=== PATIENT | male | born 1955 | race Caucasian/White ===

== ENCOUNTER 2024-09-16 11:06 | Inpatient (IN) ==
[2024-09-16] MEDS: OPTIRAY 320 125ml IV ONE (11:13)
[2024-09-16 11:31] LABS: Basophils # (auto) 0.03 K/uL (0.00-0.20); Basophils % (auto) 0.8 %; Eosinophils # (auto) 0.19 K/uL (0.00-0.50); Eosinophils % (auto) 5.1 %; Hematocrit (blood only) 39.2 % (42.0-52.0); Hemoglobin 13.1 g/dl (14.0-18.0); Immature Granulocytes # (auto) 0.01 K/uL (0.01-0.20); Immature Granulocytes % (auto) 0.3 %; Lymphocytes # (auto) 0.58 K/uL (1.20-3.40); Lymphocytes % (auto) 15.5 %; Mean Corpuscular Hemoglobin 29.4 pg (25.0-34.0); Mean Corpuscular Hgb Conc 33.4 g/dL (32.0-36.0); Mean Corpuscular Volume 87.9 fL (80.0-100.0); Mean Platelet Volume 9.7 fL (9.4-12.4); Monocytes # (auto) 0.52 K/uL (0.11-0.59); Monocytes % (auto) 13.9 %; Neutrophils # (auto) 2.41 K/uL (1.40-6.50); Neutrophils % (auto) 64.4 %; Platelet Count 142 K/uL (130-400); RDW Coefficient of Variation 14.3 % (11.5-14.5); RDW Standard Deviation 45.7 fL (36.4-46.3); Red Blood Count 4.46 M/uL (4.70-6.10); White Blood Count 3.74 K/ul (4.8-10.8)
--- NOTE | 2024-09-16 11:33 | CT Scan Report ---
CT angio neck with con CLINICAL HISTORY: STROKE ALERT. TECHNIQUE: Following the IV administration of 112 of Optiray, CT angiogram of the neck was performed from the aortic arch to the skull base. Images are reviewed in the axial, sagittal, and coronal plane s. 3-D MIPS images are created and assessed. IV contrast was administered without complication. All m easurements were calculated based on NASCET criteria. A dose lowering technique was utilized adherin g to the principles of ALARA. COMPARISON STUDY: None FINDINGS: There are mild carotid bulb calcifications. 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 There is moderate narrowing distally at the left internal carotid artery. No oth er significant narrowing or occlusion seen at the common or internal carotid arteries.. Left vertebra l artery is dominant and the right vertebral artery is diminutive and terminates in PICA, anatomic va riant. There is calcified plaque distally at the left vertebral artery causing severe narrowing. No o ther significant narrowing or occlusion seen at the vertebral arteries. There are diffuse cervical sp ine degenerative changes. IMPRESSION: 1. Severe narrowing distally at the left vertebral artery. 2. Moderate narrowing distally at the left ICA. 3. No other significant arterial narrowing or occlusion cc of the neck. ACT 112: Negative or not required by law. The above report was generated using voice recognition software. It may contain grammatical, syntax o r spelling errors. Electronically signed by: Khai Kent M.D. 09/16/2024 11:31 AM
--- NOTE | 2024-09-16 11:33 | CT Scan Report ---
CT head/brain wo con CLINICAL HISTORY: STROKE ALERT. TECHNIQUE: Multiple axial CT images of the head were obtained without contrast. A dose lowering tech nique was utilized adhering to the principles of ALARA. CT DOSE: 1202 COMPARISON: None FINDINGS: No intracranial hemorrhage seen. No mass effect, midline shift, or hydrocephalus. There are moderate chronic small vessel ischemic changes. Visualized paranasal sinuses and mastoid air cells a re clear. No skull fracture seen. IMPRESSION: No acute findings. ACT 112: Negative or not required by law. The above report was generated using voice recognition software. It may contain grammatical, syntax o r spelling errors. Electronically signed by: Khai Kent M.D. 09/16/2024 11:32 AM
--- NOTE | 2024-09-16 11:35 | CT Scan Report ---
CTA ANGIOGRAPHY OF THE HEAD CLINICAL HISTORY: STROKE ALERT COMPARISON STUDY: No previous studies for comparison. TECHNIQUE: Helical axial images of the head were obtained following uneventful intravenous administr ation of 112 cc of Optiray. Sagittal and coronal reconstructions were viewed as well as maximal inten sity projections on an independent 3-D workstation. Automated exposure control was utilized for the study. A dose lowering technique was utilized adhering to the principles of ALARA. CT DOSE: 1202.6 mGy.cm FINDINGS: Please note that the head CT will be reported separately. No acute intracranial hemorrhage, midline shift or mass effect is present. Ventricular system is unremarkable. Basal cisterns are cehek nt. There are no extra axial collections. There is extensive atherosclerotic plaque within the intrac ranial vessels. The bilateral M1, M2, A1 and A2 segments are patent. The left A1 segment is diminutiv e, likely on a congenital basis. There is moderate stenosis of the bilateral cavernous carotids, left greater than right, due to calcified plaque. No intracranial aneurysm is identified. Severe stenoses within the intracranial portion of the left vertebral artery are patent. There is short segment occl usion with distal reconstitution of the right vertebral artery which is diminutive. Basilar artery is patent. There are moderate multifocal stenoses within the bilateral posterior cerebral artery. IMPRESSION: 1. Extensive atherosclerotic plaque within the intracranial vessels. Moderate to severe multifocal st enoses, as detailed above. Short segment occlusion with distal reconstitution of the right vertebral artery which is age indeterminate although probably chronic. 2. Otherwise, no large vessel occlusion. No intracranial aneurysm. ACT 112: Negative or not required by law. Electronically signed by: Italo Quarles M.D. 09/16/2024 11:33 AM
[2024-09-16] MEDS: SODIUM CHLORIDE 0.9% 1,000 ML IV ONE (11:43)
[2024-09-16] MEDS: LABETALOL HCL IV 5 MG/ML 20ML IV ONE (11:44)
[2024-09-16] MEDS ORDERED: No Aspirin within 24hrs of THROMBOLYTIC-Stroke PO SCH (11:45)
[2024-09-16 11:49] LABS: INR 1.1 (0.9-1.1); Partial Thromboplastin Ratio 1.1; Partial Thromboplastin Time 29 Seconds (21-31); Prothrombin Time 11.4 Seconds (9.0-12.0)
[2024-09-16] MEDS: TENECTEPLASE 25 MG in SYRINGE 0 ML IV ONE (11:49)
[2024-09-16] MEDS: STAT IV/IM STA (11:51)
[2024-09-16] MEDS: SODIUM CHLORIDE 0.9% 10ML FLUSH IV STA (11:51)
[2024-09-16 11:52] LABS: Albumin Globulin Ratio 1.4 (0.9-2); Albumin Level 3.8 gm/dl (3.4-5.0); BUN Creatinine Ratio 29.2 (10-20); Bilirubin,Total 0.2 mg/dl (0.2-1.0); Calcium 8.7 mg/dl (8.6-10.3); Creatinine Clr Calc Pharmacy 128.3 ml/min; Globulin 2.7 gm/dl (2.5-4.0); Magnesium 1.9 mg/dl (1.7-2.4); Potassium 3.9 mmol/L (3.5-5.1); Total Protein 6.5 gm/dl (6.0-8.3)
[2024-09-16] MEDS: LABETALOL HCL IV 5 MG/ML 20ML IV PRN (11:55)
[2024-09-16 11:57] LABS: Troponin I High Sensitivity 5.2 pg/ml (0-20)
--- NOTE | 2024-09-16 12:03 | Emergency Department Note ---
Impression & Plan Stroke, Thrombolytic medication administered within last 5 days, HTN (hypertension) ED Provider Note NAME: KARISSA CABRERA AGE: 69 SEX: M : 1955 ARRIVES VIA: Walk-In INFORMANT: Patient ED PROVIDER(S): Gurjit Molina MD CHIEF COMPLAINT: Strokelike symptoms, stroke alert. PLAN: Disposition: Admit MEDICAL DECISION MAKING: The patient is a pleasant 69-year-old gentleman with a past medical history of CAD, hypertension, hyperlipidemia, type 2 diabetes who presents to the emergency department via EMS for evaluation of acute onset stroke symptoms which occurred prior to arrival with last known well of 10:15 AM in the setting of the patient accompanying his to her chemotherapy appointment and staff suddenly noticed that the patient had a staggering gait and right lower facial droop with slurred speech. Stroke alert was activated in the field per my discussion on medical command call with EMS crew. Patient was taken directly to CT and case was [place] Hickman, [facility]. On evaluation patient is no acute distress, afebrile with blood pressure 170/80s and vital signs otherwise stable. He exhibits right lower facial droop with dysarthria, right upper extremity weakness with pronator drift. Right lower extremity drift. Dr. Hickman did evaluate the patient via telestroke monitor. EKG without overt acute ischemia. CXR negative for acute cardiopulmonary process per my personal preliminary review/interpretation. WBC 3.7K without prior for comparison. H/H 13.1/39.2 without prior for comparison. Platelets within normal limits. Chemistry without metabolic acidosis. Electrolytes and LFTs unremarkable. UA without evidence of infection. CT of the head was negative for ICH or ischemia. CTA of the head and neck was performed and demonstrates cerebrovascular disease with extensive atherosclerotic plaque within the intracranial vessels with moderate to severe multifocal stenoses. Note is made of short-segment occlusion with distal reconstitution of the right vertebral artery that is suspected to be chronic. Severe narrowing distally at the left vertebral artery is described. Moderate narrowing distally of the left ICA is noted. Given the patient's symptoms where he was within the TNK window TNK was offered following discussion of risks and benefits. Patient was in agreement as was his over the phone. Dr. Hickman and I were in agreement and TNK was administered following treatment with labetalol to lower the patient's blood pressure into range. Patient did exhibit rapidly improving symptoms following administration with improved facial weakness. Blood pressure additionally managed with labetalol. Patient remained in stable condition. Appreciate [facility] [place] and recommendations. Case was discussed with Alexa Rm PAC with Dr. Galicia [facility] hospitalist, who will evaluate the patient for admission. Further management per admitting team. Triage Nursing notes reviewed and agree them. Prior/external medical records reviewed Vital Signs: reviewed Differential diagnosis: Infection, dehydration, metabolic abnormality, hypo/hyperglycemia, electrolyte disturbance, anemia, hypoxia, cardiac sources, intracerebral event, toxicologic, neurologic, as well as other pathologies. ER treatment provided: See below. Diagnostics interpreted by me: ECG: Sinus rhythm with first-degree AV block, 72 bpm, no ectopy, no overt ST elevation or depression, QTc 466, QRS 108. Cardiac Monitoring: An order for continuous cardiac monitoring was placed and demonstrated sinus rhythm first-degree block, 72 bpm, no ectopy. Laboratory studies: See below Imaging studies: See below Consultation(s): Dr. Hickman, [facility] [place]. Alexa Rm PAC with Dr. Galicia [facility] hospitalist. HPI: Per MDM. ROS: See above HPI for pertinent positives & negatives. A total of 10 systems reviewed and were otherwise negative. VITALS:See Below PHYSICAL EXAMINATION: GENERAL: Awake, alert, in no distress, BMI 37.0. HENT: Normocephalic, atraumatic. Oropharynx unremarkable. EYES: Normal conjunctiva. Sclera non-icteric. EOMI. No nystamgus. PEARRL. NECK: Supple. No nuchal rigidity. FROM. No JVD. RESPIRATORY: Clear to auscultation. CARDIAC: Regular rate, normal rhythm. Extremities warm and well perfused. Pulses equal. ABDOMEN: Soft, non-distended. No tenderness to palpation. No rebound or guarding. No masses. MUSCULOSKELETAL: Chest examination reveals no tenderness. The back is symmetrical on inspection without obvious abnormality. There is no CVA tenderness to palpation. No joint edema. LOWER EXTREMITIES: Calves are equal size bilaterally and non-tender. No edema. No discoloration. NEURO: Right lower facial droop with dysarthria, right upper extremity weakness with pronator drift. Right lower extremity drift. SKIN: No rash or jaundice noted. ED COURSE: Critical Care: I have personally spent greater than 65 minutes of critical care time in the direct management of this patient. This includes bedside care, interpretation of diagnostic studies, and testing, discussion with consultants, patient, and family members, and other required patient management activities. This 65 minutes is in excess of all separately billable procedures. Gurjit Molina MD Past Med/Surg History Problem List (Updated 09/16/24 @ 22:24 by Gurjit Molina MD) Thrombolytic medication administered within last 5 days (Acute) Stroke (Acute) CAD (coronary artery disease) Dyslipidemia HTN (hypertension) (Acute) Type 2 diabetes mellitus Medical History S/P stroke due to cerebrovascular disease 1991 Esophageal reflux History of basal cell carcinoma Ischemic cardiomyopathy PATRICIA on CPAP PAF (paroxysmal atrial fibrillation) post-operative Seizure disorder, simple partial, without intractable epilepsy Ascending aorta dilation Dilated aortic root Surgical History Status post left hip replacement S/P appendectomy Status post total bilateral knee replacement History of carpal tunnel surgery of right wrist S/P CABG x 3 CABG on 10/15/21 with GORDON-LAD, SVG to diagonal, SVG to PDA Family History Other Diabetes Hypertension Lymphoma Stroke Social History Smoking Status: Never smoker Second Hand Exposure: No; Do You Dip or Chew Tobacco: No; Tobacco Cessation Education Requested by Patient: No Hx Alcohol Use: No Hx Substance Use: No Preferred Language: Turkmen Communication Ability: Effective Document Review Specialist Required: No Beliefs That Will Affect Care: None Current Living Situation: Spouse Other Information That Helps Us Care for You: No Feels Safe at Home: Yes Safety Concerns: Feels Safe At This Time Assistive Devices: CPAP Assistive Devices Comment: cpap hs-no o2 Allergies Allergies Allergy/AdvReac Type Severity Reaction Status Date / Time morphine AdvReac Nausea Verified 09/16/24 12:55 Home Meds Home Medications Medication Instructions Recorded Confirmed ascorbic acid (vitamin C) 1,000 mg 1,000 mg PO DAILY 09/16/24 09/16/24 tablet aspirin 81 mg tablet,delayed 81 mg PO DAILY 09/16/24 09/16/24 release berberine chloride 500 mg capsule 500 mg PO DAILY 09/16/24 09/16/24 carbamazepine 200 mg tablet 300 mg PO BID 09/16/24 09/16/24 cyanocobalamin (vitamin B-12) 1,000 mcg PO DAILY 09/16/24 09/16/24 1,000 mcg tablet (Vitamin B-12) metoprolol succinate 25 mg 25 mg PO DAILY 09/16/24 09/16/24 tablet,extended release 24 hr rosuvastatin 40 mg tablet 40 mg PO DAILY 09/16/24 09/16/24 vitamin B complex 1 tab PO DAILY 09/16/24 09/16/24 Results & Data (ED) Vital Signs Vital Signs - 24 hr 09/16/24 11:18 09/16/24 11:20 09/16/24 11:27 Temperature Temperature Source Pulse Rate 74 Pulse Rate [Apical] 77 Respiratory Rate 16 Respiratory Effort / Characteristics Non-Labored Respiratory Depth Normal Blood Pressure Blood Pressure [Right Arm] 171/83 H Blood Pressure Mean [Right Arm] 112 Pulse Oximetry 93 93 Oxygen Delivery Method Room Air Room Air Sepsis Recent Fever Within 48 Hours Sepsis New/Unexplained Change in Mental Status Sepsis Action Taken by Nursing 09/16/24 11:41 09/16/24 11:44 09/16/24 11:48 Temperature 36.9 C Temperature Source Oral Pulse Rate 67 Pulse Rate [Apical] 67 72 Respiratory Rate 20 17 Respiratory Effort / Characteristics Non-Labored Non-Labored Respiratory Depth Normal Normal Blood Pressure 186/126 H Blood Pressure [Right Arm] 186/126 H 181/94 H Blood Pressure Mean [Right Arm] 146 123 Pulse Oximetry 93 92 Oxygen Delivery Method Room Air Room Air Sepsis Recent Fever Within 48 Hours Sepsis New/Unexplained Change in Mental Status Sepsis Action Taken by Nursing 09/16/24 11:51 09/16/24 11:55 09/16/24 11:56 Temperature Temperature Source Pulse Rate 70 Pulse Rate [Apical] 70 70 Respiratory Rate 16 16 Respiratory Effort / Characteristics Non-Labored Non-Labored Respiratory Depth Normal Normal Blood Pressure 186/79 H Blood Pressure [Right Arm] 186/79 H 186/79 H Blood Pressure Mean [Right Arm] 114 114 Pulse Oximetry 93 92 Oxygen Delivery Method Room Air Room Air Sepsis Recent Fever Within 48 Hours Sepsis New/Unexplained Change in Mental Status Sepsis Action Taken by Nursing 09/16/24 11:58 09/16/24 12:00 09/16/24 12:01 Temperature 36.9 C Temperature Source Oral Pulse Rate 71 74 Pulse Rate [Apical] 70 Respiratory Rate 16 20 Respiratory Effort / Characteristics Non-Labored Non-Labored Respiratory Depth Normal Normal Blood Pressure 172/94 H Blood Pressure [Right Arm] 172/94 H Blood Pressure Mean [Right Arm] 120 Pulse Oximetry 93 93 Oxygen Delivery Method Room Air Room Air Sepsis Recent Fever Within 48 Hours No Sepsis New/Unexplained Change in Mental Status Yes Sepsis Action Taken by Nursing No Action Required 09/16/24 12:04 09/16/24 12:06 09/16/24 12:13 Temperature Temperature Source Pulse Rate 72 Pulse Rate [Apical] 77 67 Respiratory Rate 20 20 Respiratory Effort / Characteristics Non-Labored Spontaneous Non-Labored Respiratory Depth Normal Normal Blood Pressure 149/91 H Blood Pressure [Right Arm] 174/86 H 166/91 H Blood Pressure Mean [Right Arm] 115 116 Pulse Oximetry 94 94 Oxygen Delivery Method Room Air Room Air Sepsis Recent Fever Within 48 Hours Sepsis New/Unexplained Change in Mental Status Sepsis Action Taken by Nursing 09/16/24 12:21 09/16/24 12:21 09/16/24 12:37 Temperature Temperature Source Pulse Rate Pulse Rate [Apical] 69 71 71 Respiratory Rate 16 21 20 Respiratory Effort / Characteristics Non-Labored Non-Labored Non-Labored Respiratory Depth Normal Normal Normal Blood Pressure Blood Pressure [Right Arm] 162/92 H 162/92 H 158/93 H Blood Pressure Mean [Right Arm] 115 115 114 Pulse Oximetry 92 93 91 Oxygen Delivery Method Room Air Room Air Room Air Sepsis Recent Fever Within 48 Hours Sepsis New/Unexplained Change in Mental Status Sepsis Action Taken by Nursing 09/16/24 12:37 09/16/24 12:50 09/16/24 12:50 Temperature Temperature Source Pulse Rate Pulse Rate [Apical] 73 74 75 Respiratory Rate 20 20 20 Respiratory Effort / Characteristics Non-Labored Non-Labored Non-Labored Respiratory Depth Normal Normal Normal Blood Pressure Blood Pressure [Right Arm] 158/93 H Blood Pressure Mean [Right Arm] 114 Pulse Oximetry 93 93 93 Oxygen Delivery Method Room Air Room Air Room Air Sepsis Recent Fever Within 48 Hours Sepsis New/Unexplained Change in Mental Status Sepsis Action Taken by Nursing 09/16/24 12:59 Temperature Temperature Source Pulse Rate Pulse Rate [Apical] 77 Respiratory Rate 20 Respiratory Effort / Characteristics Non-Labored Respiratory Depth Normal Blood Pressure Blood Pressure [Right Arm] 150/83 H Blood Pressure Mean [Right Arm] 105 Pulse Oximetry 95 Oxygen Delivery Method Room Air Sepsis Recent Fever Within 48 Hours Sepsis New/Unexplained Change in Mental Status Sepsis Action Taken by Nursing Laboratory Data Attestation: I reviewed the patient's lab results. 09/16/24 11:22 09/16/24 11:22 Lab Results 09/16/24 09/16/24 09/16/24 Range/Units 11:20 11:22 12:17 WBC 3.74 L (4.8-10.8) K/ul RBC 4.46 L (4.70-6.10) M/uL Hgb 13.1 L (14.0-18.0) g/dl Hct 39.2 L (42.0-52.0) % MCV 87.9 (80.0-100.0) fL MCH 29.4 (25.0-34.0) pg MCHC 33.4 (32.0-36.0) g/dL RDW Std Deviation 45.7 (36.4-46.3) fL RDW Coeff of [place] 14.3 (11.5-14.5) % Plt Count 142 (130-400) K/uL MPV 9.7 (9.4-12.4) fL Immature Gran % (Auto) 0.3 % Neut % (Auto) 64.4 % Lymph % (Auto) 15.5 % [place] % (Auto) 13.9 % Eos % (Auto) 5.1 % Baso % (Auto) 0.8 % Neut # (Auto) 2.41 (1.40-6.50) K/uL Lymph # (Auto) 0.58 L (1.20-3.40) K/uL [place] # (Auto) 0.52 (0.11-0.59) K/uL Eos # (Auto) 0.19 (0.00-0.50) K/uL Baso # (Auto) 0.03 (0.00-0.20) K/uL Immature Gran # (Auto) 0.01 (0.01-0.20) K/uL PT 11.4 (9.0-12.0) Seconds INR 1.1 (0.9-1.1) APTT 29 (21-31) Seconds PTT Ratio 1.1 Sodium 135 L (136-145) mmol/L Potassium 3.9 (3.5-5.1) mmol/L Chloride 104 (98-107) mmol/L Carbon Dioxide 26 (21-32) mmol/L Anion Gap 5 (3-11) BUN 21 (6-23) mg/dl Creatinine 0.72 (0.6-1.4) mg/dl Est Cr Clr Drug Dosing 128.3 ml/min eGFR 97.68 BUN/Creatinine Ratio 29.2 H (10-20) Glucose 146 H (70-99(Fasting)) mg/dl POC Glucose 132 H (70-99) mg/dl Calcium 8.7 (8.6-10.3) mg/dl Magnesium 1.9 (1.7-2.4) mg/dl Total Bilirubin 0.2 (0.2-1.0) mg/dl AST 21 (13-39) U/L ALT 24 (7-52) U/L Alkaline Phosphatase 70 (34-104) U/L Troponin I High Sens 5.2 (0-20) pg/ml Total Protein 6.5 (6.0-8.3) gm/dl Albumin 3.8 (3.4-5.0) gm/dl Globulin 2.7 (2.5-4.0) gm/dl Albumin/Globulin Ratio 1.4 (0.9-2) Urine Color Yellow Urine Appearance Clear (Clear) Urine pH 7.0 (4.5-7.5) Ur Specific [place] 1.033 H (1.000-1.030) Urine Protein Negative (Negative) Urine Glucose (UA) Negative (Negative) Urine Ketones Negative (Negative) Urine Blood Negative (Negative) Urine Nitrite Negative (Negative) Urine Bilirubin Negative (Negative) Urine Urobilinogen Negative (Negative) Ur Leukocyte Esterase Negative (Negative) Urine Comment Administered Medications Carbamazepine (Carbamazepine 200 Mg Tablet) 300 mg PO BID KILO Stop: 10/16/24 20:59 Last Admin: 09/16/24 20:12 Dose: 300 mg Documented By: SG Miscellaneous (Icu Protocol For Hyperglycemia) 1 each N/A ACHS KILO Stop: 09/18/24 16:29 Last Admin: 09/16/24 20:18 Dose: 1 each Documented By: Admin: 09/16/24 18:23 Dose: Not Given Documented By: CAM Discontinued Medications Gadobutrol (Gadobutrol 65ml Vial) 12.4 ml IV ONCE ONE Stop: 09/16/24 20:55 Last Admin: 09/16/24 20:55 Dose: 12.4 ml Documented By: PAU Sodium Chloride (Nss) 1,000 mls @ 999 mls/hr IV .Q1H1M ONE Stop: 09/16/24 12:19 Last Infusion: 09/16/24 11:51 Dose: Infused Documented By: Admin: 09/16/24 11:43 Dose: 999 mls/hr Documented By: EUSEBIA Tenecteplase 25 mg/ Syringe 5 mls @ 60 mls/min IV NOW ONE; Protocol Stop: 09/16/24 11:56 Last Admin: 09/16/24 11:49 Dose: 60 mls/min Documented By: EUSEBIA Co-signed By: MARTY Ioversol (Optiray 320 125ml) 112 ml IV ONCE ONE Stop: 09/16/24 11:13 Last Admin: 09/16/24 11:13 Dose: 112 ml Documented By: AYANA Labetalol HCl (Labetalol Hcl Iv 5 Mg/Ml 20ml) Confirm Administered Dose 10 mg IV .STK-MED ONE Stop: 09/16/24 11:42 Last Admin: 09/16/24 11:44 Dose: 10 mg Documented By: EUSEBIA Labetalol HCl (Labetalol Hcl Iv 5 Mg/Ml 20ml) 10 mg IV Q10M PRN PRN Reason: SBP > 185 or DBP > 110mmHg Stop: 09/16/24 12:45 Last Admin: 09/16/24 11:55 Dose: 5 mg Documented By: EUSEBIA Miscellaneous (Stat Iv/Im) 1 each N/A NOW STA Stop: 09/16/24 11:46 Last Admin: 09/16/24 11:51 Dose: 1 each Documented By: EUSEBIA Ondansetron HCl (Ondansetron Inj 2 Mg/Ml 2 Ml Vial) Confirm Administered Dose 4 mg .ROUTE .STK-MED ONE Stop: 09/16/24 12:13 Last Admin: 09/16/24 12:13 Dose: 4 mg Documented By: EUSEBIA Sodium Chloride (Sodium Chloride 0.9% 10ml Flush) 20 ml IV NOW STA Stop: 09/16/24 11:46 Last Admin: 09/16/24 11:51 Dose: 20 ml Documented By: ES Imaging Data Radiologist's Impression: Head CT 09/16/24 11:09 CT head/brain wo con CLINICAL HISTORY: STROKE ALERT. TECHNIQUE: Multiple axial CT images of the head were obtained without contrast. A dose lowering technique was utilized adhering to the principles of ALARA. CT DOSE: 1202 COMPARISON: None FINDINGS: No intracranial hemorrhage seen. No mass effect, midline shift, or hydrocephalus. There are moderate chronic small vessel ischemic changes. Visualized paranasal sinuses and mastoid air cells are clear. No skull fracture seen. IMPRESSION: No acute findings. ACT 112: Negative or not required by law. The above report was generated using voice recognition software. It may contain grammatical, syntax or spelling errors. Electronically signed by: Khai Kent M.D. 09/16/2024 11:32 AM Head CTA 09/16/24 11:09 CTA ANGIOGRAPHY OF THE HEAD CLINICAL HISTORY: STROKE ALERT COMPARISON STUDY: No previous studies for comparison. TECHNIQUE: Helical axial images of the head were obtained following uneventful intravenous administration of 112 cc of Optiray. Sagittal and coronal reconstructions were viewed as well as maximal intensity projections on an independent 3-D workstation. Automated exposure control was utilized for the study. A dose lowering technique was utilized adhering to the principles of ALARA. CT DOSE: 1202.6 mGy.cm FINDINGS: Please note that the head CT will be reported separately. No acute intracranial hemorrhage, midline shift or mass effect is present. Ventricular system is unremarkable. Basal cisterns are patent. There are no extra axial collections. There is extensive atherosclerotic plaque within the intracranial vessels. The bilateral M1, M2, A1 and A2 segments are patent. The left A1 segment is diminutive, likely on a congenital basis. There is moderate stenosis of the bilateral cavernous carotids, left greater than right, due to calcified plaque. No intracranial aneurysm is identified. Severe stenoses within the intracranial portion of the left vertebral artery are patent. There is short segment occlusion with distal reconstitution of the right vertebral artery which is diminutive. Basilar artery is patent. There are moderate multifocal stenoses within the bilateral posterior cerebral artery. IMPRESSION: 1. Extensive atherosclerotic plaque within the intracranial vessels. Moderate to severe multifocal stenoses, as detailed above. Short segment occlusion with distal reconstitution of the right vertebral artery which is age indeterminate although probably chronic. 2. Otherwise, no large vessel occlusion. No intracranial aneurysm. ACT 112: Negative or not required by law. Electronically signed by: Italo Quarles M.D. 09/16/2024 11:33 AM Neck CTA 09/16/24 11:09 CT angio neck with con CLINICAL HISTORY: STROKE ALERT. TECHNIQUE: Following the IV administration of 112 of Optiray, CT angiogram of the neck was performed from the aortic arch to the skull base. Images are reviewed in the axial, sagittal, and coronal planes. 3-D MIPS images are created and assessed. IV contrast was administered without complication. All measurements were calculated based on NASCET criteria. A dose lowering technique was utilized adhering to the principles of ALARA. COMPARISON STUDY: None FINDINGS: There are mild carotid bulb calcifications. There are calcifications distally at the internal carotid arteries. There is moderate narrowing distally at the left internal carotid artery. No other significant narrowing or occlusion seen at the common or internal carotid arteries.. Left vertebral artery is dominant and the right vertebral artery is diminutive and terminates in PICA, anatomic variant. There is calcified plaque distally at the left vertebral artery causing severe narrowing. No other significant narrowing or occlusion seen at the vertebral arteries. There are diffuse cervical spine degenerative changes. IMPRESSION: 1. Severe narrowing distally at the left vertebral artery. 2. Moderate narrowing distally at the left ICA. 3. No other significant arterial narrowing or occlusion cc of the neck. ACT 112: Negative or not required by law. The above report was generated using voice recognition software. It may contain grammatical, syntax or spelling errors. Electronically signed by: Khai Kent M.D. 09/16/2024 11:31 AM Chest X-Ray 09/16/24 11:19 XR chest 1V portable CLINICAL HISTORY: neuro deficit, acute stroke suspected COMPARISON STUDY: None FINDINGS: There is prior CABG. There is moderate cardiomegaly with mild pulmonary vascular congestion. Inspiration shallow. No effusion, consolidation, or pneumothorax. IMPRESSION: CHF. ACT 112: Negative or not required by law. Electronically signed by: Khai Kent M.D. 09/16/2024 12:18 PM Discharge Plan Visit Data Chief Complaint: Stroke Alert Stated Complaint: STROKE ALERT ED Provider: Gurjit Molina Discharge Problem: Stroke, Thrombolytic medication administered within last 5 days, HTN (hypertension) Patient Disposition: Admitted As Inpatient Condition: Serious Discharge Instructions Interventions: ED Discharge Assessment Last Done: 09/16/24 14:35 Discharge Problem: Stroke Qualifiers: CVA mechanism: unspecified Qualified Code(s): I63.9 - Cerebral infarction, unspecified HTN (hypertension) Qualifiers: Hypertension type: unspecified Qualified Code(s): I10 - Essential (primary) hypertension
[2024-09-16] MEDS: ONDANSETRON INJ 2 MG/ML 2 ML VIAL ONE (12:13)
--- NOTE | 2024-09-16 12:20 | XRay Report ---
XR chest 1V portable CLINICAL HISTORY: neuro deficit, acute stroke suspected COMPARISON STUDY: None FINDINGS: There is prior CABG. There is moderate cardiomegaly with mild pulmonary vascular congestion . Inspiration shallow. No effusion, consolidation, or pneumothorax. IMPRESSION: CHF. ACT 112: Negative or not required by law. Electronically signed by: Khai Kent M.D. 09/16/2024 12:18 PM
[2024-09-16 12:28] LABS: Appearance Urine Clear (Clear); Bilirubin Urine Negative (Negative); Blood Urine Negative (Negative); Color Urine Yellow; Glucose Urine UA Negative (Negative); Ketones Urine Negative (Negative); Leukocyte Esterase Urine Negative (Negative); Nitrite Urine Negative (Negative); Protein Urine Negative (Negative); Specific Gravity Urine 1.033 (1.000-1.030); Urobilinogen Urine Negative (Negative)
--- NOTE | 2024-09-16 13:00 | History & Physical Report ---
Date of Service September 16, 2024 Assessment & Plan (1) Stroke: (2) Type 2 diabetes mellitus: (3) CAD (coronary artery disease): (4) HTN (hypertension): (5) Dyslipidemia: (6) PATRICIA on CPAP: (7) Seizure disorder, simple partial, without intractable epilepsy: Plan This is a 69 y/o male with CAD s/p CABG x 3, HTN, dyslipidemia, hx PAF (post- operative), diet-controlled DM2, seizure d/o (seizure-free x 15 yrs, Tegretol being tapered), dilated aortic root/ascending aorta, PATRICIA on CPAP, and other history as outlined below who presents to the ED today as a stroke alert. Underwent telestroke evaluation and determined to be a TNK candidate, which he received at 11:49 am with improvement of symptoms. Initial CT brain was negative for acute findings. CTA head/neck showed severe narrowing distally at left vertebral artery, moderate narrowing distally at left ICA, extensive intracr anial atherosclerotic plaque, moderate to severe multifocal stenosis. Initial labs with hgb 13.1, hct 39.2, BUN 21, creatinine 0.72. #Stroke s/p TNK administration #Extensive atherosclerosis of intracranial vasculature - Admit to ICU x 24 hours for close monitoring - Consult scrummaster - Neuro checks per protocol - Repeat non-contrast CT head in 24 hours to rule out bleeding, no antiplatelets/anticoagulation x 24 hours - A1c, lipids, homocysteine in the AM - Consult neurology - PT, OT, speech therapy evaluations - Spoke with RN in the ED who did bedside swallow - passed so will order diet - MRI brain - ECHO with bubble study #Type 2 Diabetes - Insulin sliding scale to maintain glucose <180 - A1c in AM - Consider additional medication, such as metformin, at discharge for more aggressive blood glucose management - Diabetic diet #Hypertension - Maintain BP <180/100 as per protocol - prn Labetalol ordered - May need to consider additional BP agent with the metoprolol #Dyslipidemia - Lipid panel in the AM - Change from rosuvastatin to atorvastatin 80 mg daily #PATRICIA on CPAP - CPAP ordered for HS based on settings listed in Epic #CAD s/p CABG x 3 - Denies anginal symptoms - Continue statin, beta-isadora. Will resume aspirin after 24 hours #Seizure disorder - Continue Tegretol Pt seen and reviewed with collaborating physician, Dr. Galicia. Plan of care discussed and as outlined above. Code status: full code DVT prophylaxis: SCDs I spent a total of 76 minutes coordinating, documenting, and providing care for this patient excluding time spent in the performance of separately billed services or time spent by another provider/QHP. Patience Latham PA-C History of Present Illness Chief Complaint: stroke alert Primary Care Provider: Eli Ahmadi PA-C This is a 69 y/o male with CAD s/p CABG x 3, HTN, dyslipidemia, hx PAF (post-operative), diet-controlled DM2. seizure d/o (seizure-free x 15 yrs, Tegretol being tapered), dilated aortic root/ascending aorta, PATRICIA on CPAP, and other history as outlined below who presents to the ED today as a stroke alert. Pt reports he was with his while she was getting chemotherapy and dozed off. When he woke up, he was soaked in sweat. He went to get up from the chair and noted his balance was off and he was falling to the right. Staff at the other medical facility all noted pt had a right facial droop and slurred speech so EMS was called. Last known well at 10:10 am. Pt brought to the ED via EMS as a stroke alert. In the ED, pt underwent telestroke evaluation and determined to be a candidate for TNK. Administered at 11:49 am with reported improvement in symptoms. Since TNK, pt has noted some mild nausea, bleeding lower lip but attributed to dry air. He had right facial numbness and dysarthria initially, which has also resolved. Denies chest pain, dyspnea, palpitations. He has a history of seizure disorder but reports last seizure was more than fifteen years ago. Has been tapering Tegretol - currently taking 300 mg BID (was originally at 600 mg BID). ECHO 05/13/23 - LVEF 55-59%, normal LV systolic function, grade I diastolic function, mild aortic regurgitation, moderately calcified aortic valve; mildly enlarged aortic root (4.3 cm), proximal ascending thoracic aorta is moderately enlarged (4.4 cm); mild mitral regurgitation Labs 08/02/24: A1c 7.0, LDL 98, HDL 37 Allergies Allergy/AdvReac Type Severity Reaction Status Date / Time morphine AdvReac Nausea Verified 09/16/24 12:55 Home Medications Medication Instructions Recorded Confirmed Type ascorbic acid (vitamin C) 1,000 mg 1,000 mg PO DAILY 09/16/24 09/16/24 History tablet aspirin 81 mg tablet,delayed 81 mg PO DAILY 09/16/24 09/16/24 History release berberine chloride 500 mg capsule 500 mg PO DAILY 09/16/24 09/16/24 History carbamazepine 200 mg tablet 300 mg PO BID 09/16/24 09/16/24 History cyanocobalamin (vitamin B-12) 1,000 mcg PO DAILY 09/16/24 09/16/24 History 1,000 mcg tablet (Vitamin B-12) metoprolol succinate 25 mg 25 mg PO DAILY 09/16/24 09/16/24 History tablet,extended release 24 hr rosuvastatin 40 mg tablet 40 mg PO DAILY 09/16/24 09/16/24 History vitamin B complex 1 tab PO DAILY 09/16/24 09/16/24 History Past Med/Surg History Problem List (Updated 09/16/24 @ 14:37 by Sandhya Latham PA-C) Stroke CAD (coronary artery disease) Dyslipidemia HTN (hypertension) Type 2 diabetes mellitus Medical History (Updated 09/16/24 @ 14:37 by Sandhya Latham PA-C) S/P stroke due to cerebrovascular disease 1991 Esophageal reflux History of basal cell carcinoma Ischemic cardiomyopathy PATRICIA on CPAP PAF (paroxysmal atrial fibrillation) post-operative Seizure disorder, simple partial, without intractable epilepsy Ascending aorta dilation Dilated aortic root Surgical History (Updated 09/16/24 @ 12:45 by Sandhya Latham PA-C) Status post left hip replacement S/P appendectomy Status post total bilateral knee replacement History of carpal tunnel surgery of right wrist S/P CABG x 3 CABG on 10/15/21 with GORDON-LAD, SVG to diagonal, SVG to PDA Family History (Updated 09/16/24 @ 12:42 by Sandhya Latham PA-C) Other Diabetes Hypertension Lymphoma Stroke Social History Smoking Status: Never smoker Second Hand Exposure: No; Do You Dip or Chew Tobacco: No; Tobacco Cessation Education Requested by Patient: No Hx Alcohol Use: No Hx Substance Use: No Preferred Language: Swedish Communication Ability: Effective Resort Desk Clerk Required: No Beliefs That Will Affect Care: None Current Living Situation: Spouse Other Information That Helps Us Care for You: No Feels Safe at Home: Yes Safety Concerns: Feels Safe At This Time Assistive Devices: CPAP Assistive Devices Comment: cpap hs-no o2 Review of Systems Review of Systems: All systems reviewed & are unremarkable except as noted in Subjective Physical Exam Physical Exam: Please see physician note for details of the physical exam. Results & Data Results & Data Vital Signs (Past 12 Hours) Vital Signs Temp Pulse Pulse Resp BP BP Pulse Ox 09/16/24 12:50 75 20 93 09/16/24 12:50 74 20 93 09/16/24 12:37 73 20 158/93 H 93 09/16/24 12:37 71 20 158/93 H 91 09/16/24 12:21 71 21 162/92 H 93 09/16/24 12:21 69 16 162/92 H 92 09/16/24 12:13 72 149/91 H 09/16/24 12:06 67 20 166/91 H 94 09/16/24 12:04 77 20 174/86 H 94 09/16/24 12:01 36.9 C 74 20 93 09/16/24 12:00 71 172/94 H 09/16/24 11:58 70 16 172/94 H 93 09/16/24 11:56 70 16 186/79 H 92 09/16/24 11:55 70 186/79 H 09/16/24 11:51 70 16 186/79 H 93 09/16/24 11:48 72 17 181/94 H 92 09/16/24 11:44 67 186/126 H 09/16/24 11:41 36.9 C 67 20 186/126 H 93 09/16/24 11:27 74 09/16/24 11:20 93 09/16/24 11:18 77 16 171/83 H 93 O2 Del Method 09/16/24 12:50 Room Air 09/16/24 12:50 Room Air 09/16/24 12:37 Room Air 09/16/24 12:37 Room Air 09/16/24 12:21 Room Air 09/16/24 12:21 Room Air 09/16/24 12:13 09/16/24 12:06 Room Air 09/16/24 12:04 Room Air 09/16/24 12:01 Room Air 09/16/24 12:00 09/16/24 11:58 Room Air 09/16/24 11:56 Room Air 09/16/24 11:55 09/16/24 11:51 Room Air 09/16/24 11:48 Room Air 09/16/24 11:44 09/16/24 11:41 Room Air 09/16/24 11:27 09/16/24 11:20 Room Air 09/16/24 11:18 Room Air Laboratory Results Lab Results 09/16/24 09/16/24 09/16/24 Range/Units 11:20 11:22 12:17 WBC 3.74 L (4.8-10.8) K/ul RBC 4.46 L (4.70-6.10) M/uL Hgb 13.1 L (14.0-18.0) g/dl Hct 39.2 L (42.0-52.0) % MCV 87.9 (80.0-100.0) fL MCH 29.4 (25.0-34.0) pg MCHC 33.4 (32.0-36.0) g/dL RDW Std Deviation 45.7 (36.4-46.3) fL RDW Coeff of [place] 14.3 (11.5-14.5) % Plt Count 142 (130-400) K/uL MPV 9.7 (9.4-12.4) fL Immature Gran % (Auto) 0.3 % Neut % (Auto) 64.4 % Lymph % (Auto) 15.5 % [place] % (Auto) 13.9 % Eos % (Auto) 5.1 % Baso % (Auto) 0.8 % Neut # (Auto) 2.41 (1.40-6.50) K/uL Lymph # (Auto) 0.58 L (1.20-3.40) K/uL [place] # (Auto) 0.52 (0.11-0.59) K/uL Eos # (Auto) 0.19 (0.00-0.50) K/uL Baso # (Auto) 0.03 (0.00-0.20) K/uL Immature Gran # (Auto) 0.01 (0.01-0.20) K/uL PT 11.4 (9.0-12.0) Seconds INR 1.1 (0.9-1.1) APTT 29 (21-31) Seconds PTT Ratio 1.1 Sodium 135 L (136-145) mmol/L Potassium 3.9 (3.5-5.1) mmol/L Chloride 104 (98-107) mmol/L Carbon Dioxide 26 (21-32) mmol/L Anion Gap 5 (3-11) BUN 21 (6-23) mg/dl Creatinine 0.72 (0.6-1.4) mg/dl Est Cr Clr Drug Dosing 128.3 ml/min eGFR 97.68 BUN/Creatinine Ratio 29.2 H (10-20) Glucose 146 H (70-99(Fasting)) mg/dl POC Glucose 132 H (70-99) mg/dl Calcium 8.7 (8.6-10.3) mg/dl Magnesium 1.9 (1.7-2.4) mg/dl Total Bilirubin 0.2 (0.2-1.0) mg/dl AST 21 (13-39) U/L ALT 24 (7-52) U/L Alkaline Phosphatase 70 (34-104) U/L Troponin I High Sens 5.2 (0-20) pg/ml Total Protein 6.5 (6.0-8.3) gm/dl Albumin 3.8 (3.4-5.0) gm/dl Globulin 2.7 (2.5-4.0) gm/dl Albumin/Globulin Ratio 1.4 (0.9-2) Urine Color Yellow Urine Appearance Clear (Clear) Urine pH 7.0 (4.5-7.5) Ur Specific [place] 1.033 H (1.000-1.030) Urine Protein Negative (Negative) Urine Glucose (UA) Negative (Negative) Urine Ketones Negative (Negative) Urine Blood Negative (Negative) Urine Nitrite Negative (Negative) Urine Bilirubin Negative (Negative) Urine Urobilinogen Negative (Negative) Ur Leukocyte Esterase Negative (Negative) Urine Comment Diagnostic Findings Head CT 09/16/24 11:09 CT head/brain wo con CLINICAL HISTORY: STROKE ALERT. TECHNIQUE: Multiple axial CT images of the head were obtained without contrast. A dose lowering technique was utilized adhering to the principles of ALARA. CT DOSE: 1202 COMPARISON: None FINDINGS: No intracranial hemorrhage seen. No mass effect, midline shift, or hydrocephalus. There are moderate chronic small vessel ischemic changes. Visualized paranasal sinuses and mastoid air cells are clear. No skull fracture seen. IMPRESSION: No acute findings. ACT 112: Negative or not required by law. The above report was generated using voice recognition software. It may contain grammatical, syntax or spelling errors. Electronically signed by: Khai Kent M.D. 09/16/2024 11:32 AM Head CTA 09/16/24 11:09 CTA ANGIOGRAPHY OF THE HEAD CLINICAL HISTORY: STROKE ALERT COMPARISON STUDY: No previous studies for comparison. TECHNIQUE: Helical axial images of the head were obtained following uneventful intravenous administration of 112 cc of Optiray. Sagittal and coronal reconstructions were viewed as well as maximal intensity projections on an independent 3-D workstation. Automated exposure control was utilized for the study. A dose lowering technique was utilized adhering to the principles of ALARA. CT DOSE: 1202.6 mGy.cm FINDINGS: Please note that the head CT will be reported separately. No acute intracranial hemorrhage, midline shift or mass effect is present. Ventricular system is unremarkable. Basal cisterns are patent. There are no extra axial collections. There is extensive atherosclerotic plaque within the intracranial vessels. The bilateral M1, M2, A1 and A2 segments are patent. The left A1 segment is diminutive, likely on a congenital basis. There is moderate stenosis of the bilateral cavernous carotids, left greater than right, due to calcified plaque. No intracranial aneurysm is identified. Severe stenoses within the intracranial portion of the left vertebral artery are patent. There is short segment occlusion with distal reconstitution of the right vertebral artery which is diminutive. Basilar artery is patent. There are moderate multifocal stenoses within the bilateral posterior cerebral artery. IMPRESSION: 1. Extensive atherosclerotic plaque within the intracranial vessels. Moderate to severe multifocal stenoses, as detailed above. Short segment occlusion with distal reconstitution of the right vertebral artery which is age indeterminate although probably chronic. 2. Otherwise, no large vessel occlusion. No intracranial aneurysm. ACT 112: Negative or not required by law. Electronically signed by: Italo Quarles M.D. 09/16/2024 11:33 AM Neck CTA 09/16/24 11:09 CT angio neck with con CLINICAL HISTORY: STROKE ALERT. TECHNIQUE: Following the IV administration of 112 of Optiray, CT angiogram of the neck was performed from the aortic arch to the skull base. Images are reviewed in the axial, sagittal, and coronal planes. 3-D MIPS images are created and assessed. IV contrast was administered without complication. All measurements were calculated based on NASCET criteria. A dose lowering technique was utilized adhering to the principles of ALARA. COMPARISON STUDY: None FINDINGS: There are mild carotid bulb calcifications. There are calcifications distally at the internal carotid arteries. There is moderate narrowing distally at the left internal carotid artery. No other significant narrowing or occlusion seen at the common or internal carotid arteries.. Left vertebral artery is dominant and the right vertebral artery is diminutive and terminates in PICA, anatomic variant. There is calcified plaque distally at the left vertebral artery causing severe narrowing. No other significant narrowing or occlusion seen at the vertebral arteries. There are diffuse cervical spine degenerative changes. IMPRESSION: 1. Severe narrowing distally at the left vertebral artery. 2. Moderate narrowing distally at the left ICA. 3. No other significant arterial narrowing or occlusion cc of the neck. ACT 112: Negative or not required by law. The above report was generated using voice recognition software. It may contain grammatical, syntax or spelling errors. Electronically signed by: Khai Kent M.D. 09/16/2024 11:31 AM Chest X-Ray 09/16/24 11:19 XR chest 1V portable CLINICAL HISTORY: neuro deficit, acute stroke suspected COMPARISON STUDY: None FINDINGS: There is prior CABG. There is moderate cardiomegaly with mild pulmonary vascular congestion. Inspiration shallow. No effusion, consolidation, or pneumothorax. IMPRESSION: CHF. ACT 112: Negative or not required by law. Electronically signed by: Khai Kent M.D. 09/16/2024 12:18 PM Medications Administered Discontinued Medications Sodium Chloride (Nss) 1,000 mls @ 999 mls/hr IV .Q1H1M ONE Stop: 09/16/24 12:19 Last Infusion: 09/16/24 11:51 Dose: Infused Documented By: Admin: 09/16/24 11:43 Dose: 999 mls/hr Documented By: EUSEBIA Tenecteplase 25 mg/ Syringe 5 mls @ 60 mls/min IV NOW ONE; Protocol Stop: 09/16/24 11:56 Last Admin: 09/16/24 11:49 Dose: 60 mls/min Documented By: EUSEBIA Co-signed By: MARTY Ioversol (Optiray 320 125ml) 112 ml IV ONCE ONE Stop: 09/16/24 11:13 Last Admin: 09/16/24 11:13 Dose: 112 ml Documented By: AYANA Labetalol HCl (Labetalol Hcl Iv 5 Mg/Ml 20ml) Confirm Administered Dose 10 mg IV .STK-MED ONE Stop: 09/16/24 11:42 Last Admin: 09/16/24 11:44 Dose: 10 mg Documented By: EUSEBIA Labetalol HCl (Labetalol Hcl Iv 5 Mg/Ml 20ml) 10 mg IV Q10M PRN PRN Reason: SBP > 185 or DBP > 110mmHg Stop: 09/16/24 12:45 Last Admin: 09/16/24 11:55 Dose: 5 mg Documented By: EUSEBIA Miscellaneous (Stat Iv/Im) 1 each N/A NOW STA Stop: 09/16/24 11:46 Last Admin: 09/16/24 11:51 Dose: 1 each Documented By: EUSEBIA Ondansetron HCl (Ondansetron Inj 2 Mg/Ml 2 Ml Vial) Confirm Administered Dose 4 mg .ROUTE .STK-MED ONE Stop: 09/16/24 12:13 Last Admin: 09/16/24 12:13 Dose: 4 mg Documented By: EUSEBIA Sodium Chloride (Sodium Chloride 0.9% 10ml Flush) 20 ml IV NOW STA Stop: 09/16/24 11:46 Last Admin: 09/16/24 11:51 Dose: 20 ml Documented By: EUSEBIA Supervising Physician Co-Signing Physician Notes Patient seen and examined at bedside. Discussed with above provider. Patient presented to the hospital with acute onset of right-sided facial droop and imbalance with gait. He was given tPA. He reports that the symptoms that he presented with have resolved. On physical examination; Constitutional: Alert oriented x 3; not in distress. Mouth- dried blood seen around the mouth. no active bleeding noted in the gums Respiratory: Bilateral basilar breath sound. Cardiovascular: RRR, no murmur, no edema Vessels: no JVD or carotid bruit Chest: normal inspection of chest Abdomen: normal bowel sounds, soft, nontender, no hepatosplenomegaly Musculoskeletal: no cyanosis or clubbing, extremities motor strength 5/5 Skin: no rashes, warm and dry normal turgor Neurologic: PERRL, EOMI, accommodation nl, Slight drooping of right eye Mild pronator drift present on right side Sensation and strength intact throughout 5 x 5 Khwmyj-[id number] test within normal limits No dysdiadochokinesia Daly heel test within normal limits Psychiatric: A+Ox3, euthymic affect Plan to admit the patient to ICU for next 24 hours for frequent neurochecks as per protocol. As needed labetalol as needed to keep SBP less than 180. Obtain CT head in 24 hours. Obtain MRI brain, echocardiogram, PT OT and SKID MACHINE OPERATOR eval. Plan to start DAPT after CT head is done. I have reviewed the advanced practitioner's documentation, and I agree with, and take responsibility for the plan of care I spent a total of 45 minutes coordinating, documenting, and providing care for this patient excluding time spent in the performance of separately billed services. All of the aforementioned completed while collaborating with the assigned advanced practitioner for a full treatment plan (1) Stroke CVA mechanism: unspecified Qualified Code(s): I63.9 - Cerebral infarction, unspecified (2) Type 2 diabetes mellitus Diabetes mellitus complication status: without complication Diabetes mellitus rat exterminator insulin use: without rat exterminator use Qualified Code(s): E11.9 - Type 2 diabetes mellitus without complications (3) CAD (coronary artery disease) Associated angina: without angina Coronary Disease-Associated Artery/Lesion type: [place] artery [place] vs. transplanted heart: [place] heart Qualified Code(s): I25.10 - Atherosclerotic heart disease of [place] coronary artery without angina pectoris (4) HTN (hypertension) Hypertension type: unspecified Qualified Code(s): I10 - Essential (primary) hypertension
--- NOTE | 2024-09-16 14:57 | Critical Care Consultation ---
Date of Consultation September 16, 2024 Assessment & Plan (1) CAD (coronary artery disease): (2) Dyslipidemia: (3) HTN (hypertension): (4) Type 2 diabetes mellitus: (5) PATRICIA on CPAP: (6) Seizure disorder, simple partial, without intractable epilepsy: (7) Ascending aorta dilation: (8) Dilated aortic root: (9) Stroke: Plan -- Strokelike symptoms S/p TNK 09/16/2024 around 11:52 AM Continue with neurochecks as per protocol Repeat CT head in 24 hours Monitor for signs of bleeding Keep blood pressure < 180/105 MRI of the brain CTA head and neck 09/16/2024: Severe narrowing of the left vertebral artery distally, moderate narrowing distal at the left ICA Extensive atherosclerotic plaque within the intracranial vessels moderate to severe multifocal stenosis --History of paroxysmal A-fib Not on any anticoagulation --History of seizures Seizure-free for 15 years Tegretol being tapered right now Currently on carbamazepine 300 mg twice daily -- PATRICIA on CPAP Continue with home CPAP -- Hypertension/dyslipidemia Continue with blood pressure medication On metoprolol 25 mg daily along with rosuvastatin 40 mg -- History of coronary artery disease S/p CABG --Normocytic anemia H&H --Prophylaxis VTE: IPC GI: None Lines: Peripheral Diet: N.p.o. Plan: Strict ins and outs Continue with neurochecks Bedside swallow eval Follow-up 2D echo, MRI of the brain Patient seems to have bit his tongue as there was some dried blood in the mouth. Ice chips I have personally spent 41 minutes of critical care time in the direct management of this patient. This is a life/limb threatening event. This includes time spent evaluating patient, direct bedside care, chart review, placing orders, interpretation of diagnostic studies, discussion with consultants, patient, and family members, as well as other required patient management activities. This time is exclusive of all separately billable procedures, and teaching time and separate from and in addition to any other critical care service time. Please note the above document was generated using voice recognition software. It may contain grammatical, syntax or spelling errors. History of Present Illness History of Present Illness 69-year-old male present to the hospital with strokelike symptoms. Had TNK given around 11:52 AM. Sent to ICU for further care Past medical history: Dyslipidemia, paroxysmal A-fib, diabetes type 2, hypertension, dyslipidemia, seizure disorder, on Tegretol which is being tapered, PATRICIA on CPAP At the time of examination patient was saturating 95-96% on room air. Blood pressure was in the 130s with heart rate in the 70s. He does have chronic ringing in the right ear from previous stroke that he had. The main reason he came to the hospital was ataxia with inclination of falling to the right. 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 Allergies Allergy/AdvReac Type Severity Reaction Status Date / Time morphine AdvReac Nausea Verified 09/16/24 12:55 Home Medications Medication Instructions Recorded Confirmed Type ascorbic acid (vitamin C) 1,000 mg 1,000 mg PO DAILY 09/16/24 09/16/24 History tablet aspirin 81 mg tablet,delayed 81 mg PO DAILY 09/16/24 09/16/24 History release berberine chloride 500 mg capsule 500 mg PO DAILY 09/16/24 09/16/24 History carbamazepine 200 mg tablet 300 mg PO BID 09/16/24 09/16/24 History cyanocobalamin (vitamin B-12) 1,000 mcg PO DAILY 09/16/24 09/16/24 History 1,000 mcg tablet (Vitamin B-12) metoprolol succinate 25 mg 25 mg PO DAILY 09/16/24 09/16/24 History tablet,extended release 24 hr rosuvastatin 40 mg tablet 40 mg PO DAILY 09/16/24 09/16/24 History vitamin B complex 1 tab PO DAILY 09/16/24 09/16/24 History Patient History Medical History (Updated 09/16/24 @ 14:37 by Sandhya Latham PA-C) S/P stroke due to cerebrovascular disease 1991 Esophageal reflux History of basal cell carcinoma Ischemic cardiomyopathy PATRICIA on CPAP PAF (paroxysmal atrial fibrillation) post-operative Seizure disorder, simple partial, without intractable epilepsy Ascending aorta dilation Dilated aortic root Surgical History (Updated 09/16/24 @ 12:45 by Sandhya Latham PA-C) Status post left hip replacement S/P appendectomy Status post total bilateral knee replacement History of carpal tunnel surgery of right wrist S/P CABG x 3 CABG on 10/15/21 with GORDON-LAD, SVG to diagonal, SVG to PDA Family History (Updated 09/16/24 @ 12:42 by Sandhya Latham PA-C) Other Diabetes Hypertension Lymphoma Stroke Social History Smoking Status: Never smoker Second Hand Exposure: No; Do You Dip or Chew Tobacco: No; Hx Alcohol Use: No Hx Substance Use: No Preferred Language: Romansh Communication Ability: Effective Senior It Architect Required: No Beliefs That Will Affect Care: None Current Living Situation: Spouse Feels Safe at Home: Yes Assistive Devices: CPAP Review of Systems 2 Review of Systems: All systems reviewed & are unremarkable except as noted in HPI & below Physical Exam 2 Physical Exam: Constitutional: No acute distress HEENT: EOMI, PERRLA, no facial droop Respiratory system: Good air entry bilaterally, no wheeze, rhonchi, positive crackles bilaterally more on the left lower side CVS: S1-S2 positive, no murmurs or gallops Abdomen: Soft, nontender, nondistended, positive bowel sounds x4, obese Extremities: +2 pulses bilaterally radialis/ dorsalis pedis, no cyanosis, +2 pitting edema bilateral lower extremity Neuro: Awake alert oriented x3, cranial nerves II through XII grossly intact, muscle strength 5/5 bilateral upper and lower extremity Psych: Normal mood and affect G/U: No [place] Skin: no rashes, warm and dry Lymphatic: no cervical or axillary lymphadenopathy Results & Data Results & Data Vital Signs (Past 12 Hours) Vital Signs Temp Pulse Pulse Resp BP BP Pulse Ox 09/16/24 14:35 09/16/24 12:59 77 20 150/83 H 95 09/16/24 12:50 75 20 93 09/16/24 12:50 74 20 93 09/16/24 12:37 73 20 158/93 H 93 09/16/24 12:37 71 20 158/93 H 91 09/16/24 12:21 71 21 162/92 H 93 09/16/24 12:21 69 16 162/92 H 92 09/16/24 12:13 72 149/91 H 09/16/24 12:06 67 20 166/91 H 94 09/16/24 12:04 77 20 174/86 H 94 09/16/24 12:01 36.9 C 74 20 93 09/16/24 12:00 71 172/94 H 09/16/24 11:58 70 16 172/94 H 93 09/16/24 11:56 70 16 186/79 H 92 09/16/24 11:55 70 186/79 H 09/16/24 11:51 70 16 186/79 H 93 09/16/24 11:48 72 17 181/94 H 92 09/16/24 11:44 67 186/126 H 09/16/24 11:41 36.9 C 67 20 186/126 H 93 09/16/24 11:27 74 09/16/24 11:20 93 09/16/24 11:18 77 16 171/83 H 93 O2 Del Method 09/16/24 14:35 Room Air 09/16/24 12:59 Room Air 09/16/24 12:50 Room Air 09/16/24 12:50 Room Air 09/16/24 12:37 Room Air 09/16/24 12:37 Room Air 09/16/24 12:21 Room Air 09/16/24 12:21 Room Air 09/16/24 12:13 09/16/24 12:06 Room Air 09/16/24 12:04 Room Air 09/16/24 12:01 Room Air 09/16/24 12:00 09/16/24 11:58 Room Air 09/16/24 11:56 Room Air 09/16/24 11:55 09/16/24 11:51 Room Air 09/16/24 11:48 Room Air 09/16/24 11:44 09/16/24 11:41 Room Air 09/16/24 11:27 09/16/24 11:20 Room Air 09/16/24 11:18 Room Air Laboratory Results 09/16/24 11:22 09/16/24 11:22 Coding Level of Care Code 81559 CRITICAL CARE 1ST 30-74M Diagnoses Coronary artery disease involving [place] coronary artery of [place] heart without angina pectoris I25.10 Coronary Disease-Associated Artery/Lesion type: [place] artery [place] vs. transplanted heart: [place] heart Associated angina: without angina Dyslipidemia E78.5 Hypertension, unspecified type I10 Hypertension type: unspecified Type 2 diabetes mellitus without complication, without long-term current use of insulin E11.9 Diabetes mellitus roasterman insulin use: without senior living use Diabetes mellitus complication status: without complication PATRICIA on CPAP G47.33 Seizure disorder, simple partial, without intractable epilepsy G40.109 Ascending aorta dilation I77.810 Dilated aortic root I77.810 Cerebrovascular accident (CVA), unspecified mechanism I63.9 CVA mechanism: unspecified (1) CAD (coronary artery disease) Coronary Disease-Associated Artery/Lesion type: [place] artery [place] vs. transplanted heart: [place] heart Associated angina: without angina Qualified Code(s): I25.10 - Atherosclerotic heart disease of [place] coronary artery without angina pectoris (3) HTN (hypertension) Hypertension type: unspecified Qualified Code(s): I10 - Essential (primary) hypertension (4) Type 2 diabetes mellitus Diabetes mellitus senior living insulin use: without roasterman use Diabetes mellitus complication status: without complication Qualified Code(s): E11.9 - Type 2 diabetes mellitus without complications (9) Stroke CVA mechanism: unspecified Qualified Code(s): I63.9 - Cerebral infarction, unspecified
[2024-09-16] MEDS ORDERED: GLUCOSE 40% GEL 15 GM TUBE PO PRN (15:09)
[2024-09-16] MEDS ORDERED: CARBOHYDRATES FOR HYPOGLYCEMIA PO PRN (15:09)
[2024-09-16] MEDS ORDERED: PHARMACIST DISCHARGE MED REC CONSULT PRN (15:09)
[2024-09-16] MEDS ORDERED: GLUCOSE 10 TAB/TUBE PO PRN (15:09)
[2024-09-16] MEDS ORDERED: DEXTROSE 50% 50 ML SYRINGE IV PRN (15:09)
[2024-09-16] MEDS ORDERED: LABETALOL HCL IV 5 MG/ML 20ML IV PRN (15:09)
[2024-09-16] MEDS ORDERED: GLUCAGON FOR INJ 1 MG VIAL SQ PRN (15:09)
[2024-09-16] MEDS: ICU Protocol for HYPERglycemia SCH (18:23)
[2024-09-16] MEDS: carBAMazepine 200 MG TABLET PO SCH (20:12)
[2024-09-16] MEDS: GADOBUTROL 65ML VIAL IV ONE (20:55)
--- NOTE | 2024-09-16 23:15 | Magnetic Resonance Report ---
Exam(s): MRI HEAD W/WO Contrast EXAM: MR Head Without and With Intravenous Contrast CLINICAL HISTORY: Reason for exam: stroke. TECHNIQUE: Magnetic resonance images of the head/brain without and with intravenous contrast in multiple planes. CONTRAST: 12.4 mL of Gadavist COMPARISON: CT head and CT angio head from 09/16/2024 FINDINGS: Brain: Mild cerebral atrophy and patchy periventricular and deep white matter T2 hyperintensities consistent with chronic small vessel disease and/or senescent changes. No areas of diffusion restriction are seen to indicate acute stroke. No hemorrhage. Ventricles: Unremarkable. No ventriculomegaly. Bones/joints: Unremarkable. No acute fracture. Sinuses: Unremarkable as visualized. No acute sinusitis. Mastoid air cells: Unremarkable as visualized. No mastoid effusion. Orbits: Unremarkable as visualized. IMPRESSION: Mild cerebral atrophy and patchy periventricular and deep white matter T2 hyperintensities consistent with chronic small vessel disease and/or senescent changes. No areas of diffusion restriction are seen to indicate acute stroke. Electronically signed by: Genaro Randolph MD 09/16/24 23:14 PM
[2024-09-17 04:35] LABS: Basophils # (auto) 0.03 K/uL (0.00-0.20); Basophils % (auto) 0.7 %; Eosinophils # (auto) 0.15 K/uL (0.00-0.50); Eosinophils % (auto) 3.5 %; Hematocrit (blood only) 38.4 % (42.0-52.0); Hemoglobin 12.8 g/dl (14.0-18.0); Immature Granulocytes # (auto) 0.01 K/uL (0.01-0.20); Immature Granulocytes % (auto) 0.2 %; Lymphocytes # (auto) 0.74 K/uL (1.20-3.40); Lymphocytes % (auto) 17.3 %; Mean Corpuscular Hemoglobin 29.6 pg (25.0-34.0); Mean Corpuscular Hgb Conc 33.3 g/dL (32.0-36.0); Mean Corpuscular Volume 88.9 fL (80.0-100.0); Mean Platelet Volume 9.4 fL (9.4-12.4); Monocytes # (auto) 0.47 K/uL (0.11-0.59); Neutrophils # (auto) 2.87 K/uL (1.40-6.50); Neutrophils % (auto) 67.3 %; Platelet Count 146 K/uL (130-400); RDW Standard Deviation 45.7 fL (36.4-46.3); Red Blood Count 4.32 M/uL (4.70-6.10); White Blood Count 4.27 K/ul (4.8-10.8)
[2024-09-17 04:48] LABS: Chol HDL Ratio 3.8 (0-5)
[2024-09-17 06:03] LABS: BUN Creatinine Ratio 24.2 (10-20); Calcium 8.5 mg/dl (8.6-10.3); Creatinine Clr Calc Pharmacy 147.1 ml/min; Potassium 4.1 mmol/L (3.5-5.1)
--- NOTE | 2024-09-17 06:09 | Electrocardiogram Report ---
Test Reason : Blood Pressure : */* mmHG Vent. Rate : 72 BPM Atrial Rate : 72 BPM P-R Int : 238 ms QRS Dur : 108 ms QT Int : 426 ms P-R-T Axes : 68 35 62 degrees QTcB Int : 466 ms Sinus rhythm with 1st degree A-V block Otherwise normal ECG No previous ECGs available Confirmed by Willam Akins ([id number]) on 09/17/2024 6:09:28 AM Referred By: REFERRED SELF Confirmed By: Willam Akins
[2024-09-17 07:26] LABS: Estimated Average Glucose 151 mg/dl; Hemoglobin A1C 6.9 % (4.5-5.6)
[2024-09-17] MEDS: METOPROLOL SUCC 25MG EXT REL TAB PO SCH (07:55)
[2024-09-17] MEDS: ATORVASTATIN 40 MG TAB PO SCH (07:55)
--- NOTE | 2024-09-17 08:38 | Critical Care Progress Note ---
Date of Service September 17, 2024 Assessment & Plan (1) CAD (coronary artery disease): (2) Dyslipidemia: (3) HTN (hypertension): (4) Type 2 diabetes mellitus: (5) PATRICIA on CPAP: (6) Seizure disorder, simple partial, without intractable epilepsy: (7) Ascending aorta dilation: (8) Dilated aortic root: (9) Stroke: Plan 2D echo 09/16/2024: EF 55-60%, RV normal in size and function, grade 1 diastolic dysfunction, a PFO was present with mild right to left interatrial shunt -- Strokelike symptoms S/p TNK 09/16/2024 around 11:52 AM Continue with neurochecks as per protocol Repeat CT head in 24 hours Monitor for signs of bleeding Keep blood pressure < 180/105 MRI of the brain CTA head and neck 09/16/2024: Severe narrowing of the left vertebral artery distally, moderate narrowing distal at the left ICA Extensive atherosclerotic plaque within the intracranial vessels moderate to severe multifocal stenosis MRI brain 09/16/2024: Mild cerebral atrophy, chronic small vessel disease. No acute stroke --History of paroxysmal A-fib Not on any anticoagulation --History of seizures Seizure-free for 15 years Tegretol being tapered right now Currently on carbamazepine 300 mg twice daily -- PATRICIA on CPAP Continue with home CPAP -- Hypertension/dyslipidemia Continue with blood pressure medication On metoprolol 25 mg daily along with rosuvastatin 40 mg -- History of coronary artery disease S/p CABG --Normocytic anemia H&H --Prophylaxis VTE: IPC GI: None Lines: Peripheral Diet: Cardiac Plan: In/out: +80, urine output 1400 mL MRI of the brain was negative but 2D echo did show small PFO. Follow-up neurology recommendation Will likely need addition of Plavix to his regimen of aspirin. Follow-up repeat CT of the head, if there is negative then okay to downgrade the patient to medical floor Case discussed with primary team Please note the above document was generated using voice recognition software. It may contain grammatical, syntax or spelling errors.Any formal questions or concerns about the content, text or information contained within the body of this dictation should be directly addressed to the provider for clarification. Admission and Anticipated Discharge Date Admission Date: September 16, 2024 Subjective Patient seen and examined at bedside. No acute distress, no adverse events overnight He had good night sleep. Denies any nausea vomiting No unusual headache or blurry vision Saturation was 97% on room air, systolic blood pressure in the 130s with heart rate in the mid to high 60s Denied any nausea vomiting, no difficulty swallowing Review of Systems 2 Review of Systems: All systems reviewed & are unremarkable except as noted in Subjective Physical Exam 2 Physical Exam: Constitutional: No acute distress HEENT: EOMI, PERRLA, no facial droop Respiratory system: Good air entry bilaterally, no wheeze, rhonchi, positive crackles bilaterally more on the left lower side CVS: S1-S2 positive, no murmurs or gallops Abdomen: Soft, nontender, nondistended, positive bowel sounds x4, obese Extremities: +2 pulses bilaterally radialis/ dorsalis pedis, no cyanosis, +2 pitting edema bilateral lower extremity Neuro: Awake alert oriented x3, cranial nerves II through XII grossly intact, muscle strength 5/5 bilateral upper and lower extremity Psych: Normal mood and affect G/U: No [place] Skin: no rashes, warm and dry Lymphatic: no cervical or axillary lymphadenopathy Results & Data Results & Data Vital Signs (Past 12 Hours) Vital Signs Temp Pulse Resp BP Pulse Ox O2 Del Method 09/17/24 07:49 36.4 C L 63 18 125/66 96 Room Air 09/17/24 06:49 60 14 153/70 H 95 Room Air 09/17/24 05:49 59 L 13 138/70 97 Room Air 09/17/24 04:49 62 17 121/60 96 Room Air 09/17/24 03:49 36.5 C 60 14 165/85 H 94 Room Air 09/17/24 02:49 64 14 145/90 H 95 Room Air 09/17/24 01:49 59 L 14 147/70 H 94 Room Air 09/17/24 00:49 62 16 147/70 H 95 Room Air 09/16/24 23:49 36.5 C 59 L 16 162/76 H 96 Room Air 09/16/24 22:49 60 14 164/78 H 95 Room Air 09/16/24 21:49 60 15 140/78 94 Room Air 09/16/24 20:49 36.6 C 67 20 133/71 94 Room Air Laboratory Results 09/17/24 04:13 09/17/24 04:13 Coding Level of Care Code 27153 SUB INP/OBS CARE MIN Diagnoses Coronary artery disease involving [place] coronary artery of [place] heart without angina pectoris I25.10 Associated angina: without angina Coronary Disease-Associated Artery/Lesion type: [place] artery [place] vs. transplanted heart: [place] heart Dyslipidemia E78.5 Hypertension, unspecified type I10 Hypertension type: unspecified Type 2 diabetes mellitus without complication, without long-term current use of insulin E11.9 Diabetes mellitus complication status: without complication Diabetes mellitus alf insulin use: without intermediate project manager use PATRICIA on CPAP G47.33 Seizure disorder, simple partial, without intractable epilepsy G40.109 Ascending aorta dilation I77.810 Dilated aortic root I77.810 Cerebrovascular accident (CVA), unspecified mechanism I63.9 CVA mechanism: unspecified (1) CAD (coronary artery disease) Associated angina: without angina Coronary Disease-Associated Artery/Lesion type: [place] artery [place] vs. transplanted heart: [place] heart Qualified Code(s): I25.10 - Atherosclerotic heart disease of [place] coronary artery without angina pectoris (3) HTN (hypertension) Hypertension type: unspecified Qualified Code(s): I10 - Essential (primary) hypertension (4) Type 2 diabetes mellitus Diabetes mellitus complication status: without complication Diabetes mellitus intermediate project manager insulin use: without alf use Qualified Code(s): E11.9 - Type 2 diabetes mellitus without complications (9) Stroke CVA mechanism: unspecified Qualified Code(s): I63.9 - Cerebral infarction, unspecified
[2024-09-17 11:05] VITALS: O2SAT 97
[2024-09-17 12:10] VITALS: BP 136/68; PULSE 71; RESP 16; TEMP 97.5
--- NOTE | 2024-09-17 13:07 | CT Scan Report ---
CT SCAN OF THE BRAIN WITHOUT IV CONTRAST CLINICAL HISTORY: Post TTP. Evaluate for intracranial hemorrhage. COMPARISON STUDY: Head CT, CTA of the head and MRI of the brain September 16, 2024. TECHNIQUE: Unenhanced axial CT scan of the brain was performed from the vertex to the skull base. A dose lowering technique was utilized adhering to the principles of ALARA. CT DOSE: 703.85 mGy.cm FINDINGS: No acute intracranial hemorrhage, midline shift or mass effect is present. Ventricular syst em is unremarkable. The basal cisterns are patent. There are no extra-axial collections. White matter hypodensities are unchanged and favor small vessel disease. The appearance of the brain is unchanged . There are no findings to suggest acute dural sinus thrombosis or acute territorial infarct. Mild et hmoid sinus mucosal thickening is noted. IMPRESSION: No acute intracranial findings. ACT 112: Negative or not required by law. Electronically signed by: Italo Quarles M.D. 09/17/2024 1:06 PM
--- NOTE | 2024-09-17 13:37 | Neurology Consultation ---
Date of Consultation September 17, 2024 Assessment & Plan (1) Stroke-like symptoms: Will need admission to ICU setting following administration of IV TNK per protocol Continue neurological assessments per TNK protocol Obtain stat CT brain without contrast for any acute neurological decline Continue vital sign assessments per TNK protocol Keep SBP <180mmHg / DBP<105 mmHg Plan for follow up brain imaging at or near 24 hours post TNK administration Continue to hold full anticoagulation ASA, NSAIDs, antiplatelet medications until follow up CT brain without contrast at/near 24 hours post TNK infusion Continue stroke work up including MRI brain without contrast when stable Metabolic workup should include hgbA1c, fasting lipids Recommend obtain echocardiogram as part of complete stroke workup PT/OT/SLT to eval and treat SCDs as VTE prophylaxis If no indication for full anticoagulation per continued telemetry monitoring, pending echocardiogram or otherwise then recommend dual antiplatelt and statin therapy if no evidence of hemorrhage at time of follow up imaging. Recommend ZioPatch at DC if no evidence of arrhythmia during inpatient monitoring Follow up outpatient neurology (2) Intracranial atherosclerosis: DAPT x 3 weeks then resume daily ASA Continue daily statin therapy indefinitely Follow up outpatient neurology Telehealth Consultation Telehealth Information Telehealth Information: I performed this visit using a real-time telehealth connection between my location and the patients location ([facility]). After connecting through interactive tele-video, patient was identified by name and date of and/or wristband check.Patient (or authorized healthcare sales representative advertising) was informed that this was a telemedicine visit and it was being conducted confidentially over secure lines. My office door was closed and no one else was present in the room with me.Patient (or authorized healthcare sales representative advertising) provided consent to proceed with the visit, expressed an understanding of privacy and security of the telemedicine visit, and gave permission to have a hospital sales representative advertising in the room in order to assist with the visit and to conduct portions of the visit, as needed. I informed the patient (or authorized healthcare sales representative advertising) that I reviewed their record and presented the opportunity for them to ask any questions regarding the visit today. The patient agreed to participate. History of Present Illness Reason for Consultation: Stroke like symptoms s/p IV thrombolytic Requesting Physician: Dr Johnson Attending Physician: Jaiden Johnson MD History of Present Illness 69yo male with significant past medical history including DM, CAD, HTN, hyperlipidemia, PATRICIA and seizures was reportedly sitting with his while she was undergoing infusion when he reportedly fell asleep and awoke diaphoretic and noted he was off balance upon standing. He was noted to have right facial asymmetry and dysarthria. he was evaluated emergently as a stroke alert and ultimately underwent IV thrombolytic administration. He has remained in ICU per protocol and has undergone follow up imaging MRI and CT revealing no evidence of stroke of hemorrhagic conversion. I have performed televideo consultation. He is alert & oriented; able to answer all questions appropriately, name objects on televideo monitor, repeat phrases and perform complex/embedded commands without deficit. Neurological exam is non lateralizing/nonfocal in terms of motor strength and coordination. He is agreeable to DAPT x 3 weeks and continuing daily statin therapy indefinitely. Family at bedside report he is back to baseline. All questions answered. Allergies Allergy/AdvReac Type Severity Reaction Status Date / Time morphine AdvReac Nausea Verified 09/16/24 12:55 Home Medications Medication Instructions Recorded Confirmed Type ascorbic acid (vitamin C) 1,000 mg 1,000 mg PO DAILY 09/16/24 09/16/24 History tablet aspirin 81 mg tablet,delayed 81 mg PO DAILY 09/16/24 09/16/24 History release berberine chloride 500 mg capsule 500 mg PO DAILY 09/16/24 09/16/24 History carbamazepine 200 mg tablet 300 mg PO BID 09/16/24 09/16/24 History cyanocobalamin (vitamin B-12) 1,000 mcg PO DAILY 09/16/24 09/16/24 History 1,000 mcg tablet (Vitamin B-12) metoprolol succinate 25 mg 25 mg PO DAILY 09/16/24 09/16/24 History tablet,extended release 24 hr rosuvastatin 40 mg tablet 40 mg PO DAILY 09/16/24 09/16/24 History vitamin B complex 1 tab PO DAILY 09/16/24 09/16/24 History clopidogrel 75 mg tablet (Plavix) 75 mg PO DAILY 21 days #21 tabs 09/17/24 Rx Patient History Medical History S/P stroke due to cerebrovascular disease 1991 Esophageal reflux History of basal cell carcinoma Ischemic cardiomyopathy PATRICIA on CPAP PAF (paroxysmal atrial fibrillation) post-operative Seizure disorder, simple partial, without intractable epilepsy Ascending aorta dilation Dilated aortic root Surgical History Status post left hip replacement S/P appendectomy Status post total bilateral knee replacement History of carpal tunnel surgery of right wrist S/P CABG x 3 CABG on 10/15/21 with GORDON-LAD, SVG to diagonal, SVG to PDA Family History Other Diabetes Hypertension Lymphoma Stroke Social History Smoking Status: Never smoker Second Hand Exposure: No; Do You Dip or Chew Tobacco: No; Tobacco Cessation Education Requested by Patient: No Hx Alcohol Use: No Hx Substance Use: No Preferred Language: Mongolian Communication Ability: Effective Clinical Nurse Required: No Beliefs That Will Affect Care: None Current Living Situation: Spouse Other Information That Helps Us Care for You: No Feels Safe at Home: Yes Safety Concerns: Feels Safe At This Time Assistive Devices: CPAP Assistive Devices Comment: cpap hs-no o2 Physical Exam Neurological Examination: Mental Status: Awake and alert. Oriented to person, place, and time. Fluency naming repetition and comprehension appear grossly intact. Affect remains appropriate. CN testing: I: Denies changes in ability to smell II:Reports no changes in visual acuity III/IV/: No evidence of gaze preference, hippus, nystagmus or roving eye movements V: Facial sensation reportedly grossly intact to light touch bilaterally VII: Facial movements appear without evidence of asymmetry VIII: Chronic hypoacusis IX/X: Palate is unable to be accurately assessed via telemedicine XI: Shoulder shrug appears symmetric/ grossly intact bilaterally XII: Tongue protrudes midline without evidence of biting Motor exam: Strength appears grossly intact/symmetric in all extremities Sensory: Sensation is reportedly grossly intact throughout Coordination: No apparent evidence of dysmetria or dysdiadochokinesia Reflexes: Deferred Gait: Deferred Results & Data Vital Signs (Past 12 Hours) Vital Signs Temp Pulse Resp BP Pulse Ox O2 Del Method 09/17/24 11:49 36.4 C L 71 16 136/68 97 Room Air 09/17/24 10:49 36.7 C 62 18 132/69 97 Room Air 09/17/24 09:49 36.7 C 64 18 139/66 96 Room Air 09/17/24 08:49 36.7 C 61 18 132/68 96 Room Air 09/17/24 07:49 36.4 C L 63 18 125/66 96 Room Air 09/17/24 06:49 60 14 153/70 H 95 Room Air 09/17/24 05:49 59 L 13 138/70 97 Room Air 09/17/24 04:49 62 17 121/60 96 Room Air 09/17/24 03:49 36.5 C 60 14 165/85 H 94 Room Air 09/17/24 02:49 64 14 145/90 H 95 Room Air 09/17/24 01:49 59 L 14 147/70 H 94 Room Air Laboratory Results Abnormal lab results 09/16/24 09/16/24 09/17/24 Range/Units 18:21 20:16 04:13 WBC 4.27 L (4.8-10.8) K/ul RBC 4.32 L (4.70-6.10) M/uL Hgb 12.8 L (14.0-18.0) g/dl Hct 38.4 L (42.0-52.0) % Lymph # (Auto) 0.74 L (1.20-3.40) K/uL BUN/Creatinine Ratio 24.2 H (10-20) Glucose 123 H (70-99(Fasting)) mg/dl POC Glucose 141 H 124 H (70-99) mg/dl Hemoglobin A1c 6.9 H (4.5-5.6) % Calcium 8.5 L (8.6-10.3) mg/dl 09/17/24 09/17/24 Range/Units 07:23 11:12 WBC (4.8-10.8) K/ul RBC (4.70-6.10) M/uL Hgb (14.0-18.0) g/dl Hct (42.0-52.0) % Lymph # (Auto) (1.20-3.40) K/uL BUN/Creatinine Ratio (10-20) Glucose (70-99(Fasting)) mg/dl POC Glucose 116 H 137 H (70-99) mg/dl Hemoglobin A1c (4.5-5.6) % Calcium (8.6-10.3) mg/dl Diagnostic Findings Brain MRI 09/16/24 13:51 Exam(s): MRI HEAD W/WO Contrast EXAM: MR Head Without and With Intravenous Contrast CLINICAL HISTORY: Reason for exam: stroke. TECHNIQUE: Magnetic resonance images of the head/brain without and with intravenous contrast in multiple planes. CONTRAST: 12.4 mL of Gadavist COMPARISON: CT head and CT angio head from 09/16/2024 FINDINGS: Brain: Mild cerebral atrophy and patchy periventricular and deep white matter T2 hyperintensities consistent with chronic small vessel disease and/or senescent changes. No areas of diffusion restriction are seen to indicate acute stroke. No hemorrhage. Ventricles: Unremarkable. No ventriculomegaly. Bones/joints: Unremarkable. No acute fracture. Sinuses: Unremarkable as visualized. No acute sinusitis. Mastoid air cells: Unremarkable as visualized. No mastoid effusion. Orbits: Unremarkable as visualized. IMPRESSION: Mild cerebral atrophy and patchy periventricular and deep white matter T2 hyperintensities consistent with chronic small vessel disease and/or senescent changes. No areas of diffusion restriction are seen to indicate acute stroke. Electronically signed by: Genaro Randolph MD 09/16/24 23:[address] 09/17/24 12:30 CT SCAN OF THE BRAIN WITHOUT IV CONTRAST CLINICAL HISTORY: Post TTP. Evaluate for intracranial hemorrhage. COMPARISON STUDY: Head CT, CTA of the head and MRI of the brain September 16, 2024. TECHNIQUE: Unenhanced axial CT scan of the brain was performed from the vertex to the skull base. A dose lowering technique was utilized adhering to the principles of ALARA. CT DOSE: 703.85 mGy.cm FINDINGS: No acute intracranial hemorrhage, midline shift or mass effect is present. Ventricular system is unremarkable. The basal cisterns are patent. There are no extra-axial collections. White matter hypodensities are unchanged and favor small vessel disease. The appearance of the brain is unchanged. There are no findings to suggest acute dural sinus thrombosis or acute territorial infarct. Mild ethmoid sinus mucosal thickening is noted. IMPRESSION: No acute intracranial findings. ACT 112: Negative or not required by law. Electronically signed by: Italo Quarles M.D. 09/17/2024 1:06 PM Medications Administered Home Medications Medication Instructions Recorded Confirmed Last Taken ascorbic acid (vitamin C) 1,000 mg 1,000 mg PO DAILY 09/16/24 09/16/24 Unknown tablet aspirin 81 mg tablet,delayed 81 mg PO DAILY 09/16/24 09/16/24 Unknown release berberine chloride 500 mg capsule 500 mg PO DAILY 09/16/24 09/16/24 Unknown carbamazepine 200 mg tablet 300 mg PO BID 09/16/24 09/16/24 Unknown cyanocobalamin (vitamin B-12) 1,000 mcg PO DAILY 09/16/24 09/16/24 Unknown 1,000 mcg tablet (Vitamin B-12) metoprolol succinate 25 mg 25 mg PO DAILY 09/16/24 09/16/24 Unknown tablet,extended release 24 hr rosuvastatin 40 mg tablet 40 mg PO DAILY 09/16/24 09/16/24 Unknown vitamin B complex 1 tab PO DAILY 09/16/24 09/16/24 Unknown Active Medications Generic Name Dose Route Start Last Admin Trade Name Freq PRN Reason Stop Dose Admin Atorvastatin Calcium 80 mg 09/17/24 09:00 09/17/24 07:55 Atorvastatin 40 Mg Tab PO 10/17/24 08:59 80 mg QAM KILO Administration Carbamazepine 300 mg 09/16/24 21:00 09/17/24 07:55 Carbamazepine 200 Mg Tablet PO 10/16/24 20:59 300 mg BID KILO Administration Metoprolol Succinate 25 mg 09/17/24 09:00 09/17/24 07:55 Metoprolol Succ 25mg Ext Rel Tab PO 10/17/24 08:59 25 mg DAILY KILO Administration Miscellaneous 1 each 09/16/24 16:30 09/17/24 11:35 Icu Protocol For Hyperglycemia N/A 09/18/24 16:29 1 each ACHS KILO Administration
[2024-09-17] MEDS ORDERED: STROKE PATIENT DISCHARGE STA (13:48)
--- NOTE | 2024-09-17 13:54 | Discharge Summary ---
Discharge Summary Date of Service September 17, 2024 Principal Dx & Hospital Course #1 = Principal Diagnosis (1) Stroke: (2) Type 2 diabetes mellitus: (3) CAD (coronary artery disease): (4) HTN (hypertension): (5) Dyslipidemia: (6) PATRICIA on CPAP: (7) Seizure disorder, simple partial, without intractable epilepsy: Plan This is a 69 y/o male with CAD s/p CABG x 3, HTN, dyslipidemia, hx PAF (post- operative), diet-controlled DM2, seizure d/o (seizure-free x 15 yrs, Tegretol being tapered), dilated aortic root/ascending aorta, PATRICIA on CPAP, and other history as outlined below who presents to the ED today as a stroke alert. Underwent telestroke evaluation and determined to be a TNK candidate, which he received at 11:49 am with improvement of symptoms. Initial CT brain was negative for acute findings. CTA head/neck showed severe narrowing distally at left vertebral artery, moderate narrowing distally at left ICA, extensive intracranial atherosclerotic plaque, moderate to severe multifocal stenosis. Initial labs with hgb 13.1, hct 39.2, BUN 21, creatinine 0.72. #Stroke s/p TNK administration #Extensive atherosclerosis of intracranial vasculature - Admit to ICU x 24 hours for close monitoring - Consult cook's assistant - Neuro checks per protocol - Repeat non-contrast CT head in 24 hours to rule out bleeding, no antiplatelets/anticoagulation x 24 hours - A1c, lipids, homocysteine in the AM - Consult neurology - PT, OT, speech therapy evaluations - Spoke with RN in the ED who did bedside swallow - passed so will order diet - MRI brain - ECHO with bubble study #Type 2 Diabetes - Insulin sliding scale to maintain glucose <180 - A1c in AM - Consider additional medication, such as metformin, at discharge for more aggressive blood glucose management - Diabetic diet #Hypertension - Maintain BP <180/100 as per protocol - prn Labetalol ordered - May need to consider additional BP agent with the metoprolol #Dyslipidemia - Lipid panel in the AM - Change from rosuvastatin to atorvastatin 80 mg daily #PATRICIA on CPAP - CPAP ordered for HS based on settings listed in Epic #CAD s/p CABG x 3 - Denies anginal symptoms - Continue statin, beta-isadora. Will resume aspirin after 24 hours #Seizure disorder - Continue Tegretol Notes For Next Care Provider This is a 69 y/o male with CAD s/p CABG x 3, HTN, dyslipidemia, hx PAF (post- operative), diet-controlled DM2. seizure d/o (seizure-free x 15 yrs, Tegretol being tapered), dilated aortic root/ascending aorta, PATRICIA on CPAP, and other history as outlined below who presents to the ED today as a stroke alert. In the ED, given TNK for right facial droop, balance issues, slurred speech, symptoms improved with TNK. Admitted to ICU. Neurology consulted, recommended DAPT and follow up outpatient. Patient asymptomatic, NIHSS of 0 and medically ready for discharge home. To do: [ ] f/u with neurology outpatient Medication Changes From Visit -see below Admission HPI Per Admitting Provider This is a 69 y/o male with CAD s/p CABG x 3, HTN, dyslipidemia, hx PAF (post- operative), diet-controlled DM2. seizure d/o (seizure-free x 15 yrs, Tegretol being tapered), dilated aortic root/ascending aorta, PATRICIA on CPAP, and other history as outlined below who presents to the ED today as a stroke alert. Pt reports he was with his while she was getting chemotherapy and dozed off. When he woke up, he was soaked in sweat. He went to get up from the chair and noted his balance was off and he was falling to the right. Staff at the other medical facility all noted pt had a right facial droop and slurred speech so EMS was called. Last known well at 10:10 am. Pt brought to the ED via EMS as a stroke alert. In the ED, pt underwent telestroke evaluation and determined to be a candidate for TNK. Administered at 11:49 am with reported improvement in symptoms. Since TNK, pt has noted some mild nausea, bleeding lower lip but attributed to dry air. He had right facial numbness and dysarthria initially, which has also resolved. Denies chest pain, dyspnea, palpitations. He has a history of seizure disorder but reports last seizure was more than fifteen years ago. Has been tapering Tegretol - currently taking 300 mg BID (was originally at 600 mg BID). ECHO 05/13/23 - LVEF 55-59%, normal LV systolic function, grade I diastolic function, mild aortic regurgitation, moderately calcified aortic valve; mildly enlarged aortic root (4.3 cm), proximal ascending thoracic aorta is moderately enlarged (4.4 cm); mild mitral regurgitation Labs 08/02/24: A1c 7.0, LDL 98, HDL 37 Discharge Exam Gen: A&O 3 NAD HEENT: NCAT, EOMI, not icteric. External ears normal. No rhinorrhea. Moist mucous membranes. Neck: Supple, full range of motion, no observable masses, No meningeal sign. Lungs: No Respiratory distress. CV: RRR, no edema. Abdomen: Soft, nondistended, No rebound tenderness. MSK: No joint swelling, no redness. Skin: No rashes, petechiae, lesions. Normal color per patient. Neuro: Normal Gait, Grossly intact. NIHSS 0 on my evaluation Psych: Appropriate for situation. Updated Medication List Medication Instructions Recorded Confirmed Type ascorbic acid (vitamin C) 1,000 mg 1,000 mg PO DAILY 09/16/24 09/16/24 History tablet aspirin 81 mg tablet,delayed 81 mg PO DAILY 09/16/24 09/16/24 History release berberine chloride 500 mg capsule 500 mg PO DAILY 09/16/24 09/16/24 History carbamazepine 200 mg tablet 300 mg PO BID 09/16/24 09/16/24 History cyanocobalamin (vitamin B-12) 1,000 mcg PO DAILY 09/16/24 09/16/24 History 1,000 mcg tablet (Vitamin B-12) metoprolol succinate 25 mg 25 mg PO DAILY 09/16/24 09/16/24 History tablet,extended release 24 hr rosuvastatin 40 mg tablet 40 mg PO DAILY 09/16/24 09/16/24 History vitamin B complex 1 tab PO DAILY 09/16/24 09/16/24 History atorvastatin 40 mg tablet 80 mg (2 x 40 mg) PO QAM #60 tabs 09/17/24 Rx clopidogrel 75 mg tablet (Plavix) 75 mg PO DAILY #30 tabs 09/17/24 Rx Hospital Stay Data Consultations 09/16/24 12:34 ED Decision to Admit Stat 09/16/24 15:09 Consult Farmworker Animal Routine Consult Neurology Routine Diagnostic Imagining Performed 09/16/24 11:09 CT angio head w con Stat CT angio neck with con Stat CT head/brain wo con Stat 09/16/24 13:51 MR brain wo/w con Routine 09/17/24 12:30 CT head/brain wo con Stat Pending Results Patient Have Any Pending Studies at Discharge: No Discharge Instructions Given to Patient (Per Discharging Provider) 1. Please follow up with PCP and neurology. 2. Please follow up with cardiology for PFO as well. Total Time Total Time Spent Total Time Spent (In Minutes): I spent a total of 35 minutes in direct patient care, including [id number] time with the patient and/or family, reviewing medical records, ordering and reviewing diagnostic tests, and coordinating care with other healthcare providers. This time includes: history taking, physical examination, medical decision making, counseling, ECG interpretation, imaging interpretation, lab interpretation, orders, and education, excluding time spent in the performance of separately billed services.
--- NOTE | 2024-09-17 14:50 | Pharmacy Report ---
- Date of Service September 17, 2024 - Pharmacy CVA/TIA Medication Review Medications to Prevent Stroke handout has been added to the patients discharge packet. Antiplatelet(s) * Aspirin + Plavix 24 hours after TNKase. x 3 weeks then resume daily ASA Cholesterol * High intensity statin: atorvastatin 80 mg daily DVT Prophylaxis * Pharmacologic and mechanical DVT prophylaxis deferred Therapeutic Anticoagulation * No history of Afib/Aflutter noted Type 2 Diabetes * Patient has T2DM, a diabetes medication with proven CVD benefit will be deferred to their outpatient provider due to familiarity with risks/benefits of such therapies. "Medications to prevent stroke" handout has already been added to the patient's discharge packet, which instructs the patient to follow up with their outpatient provider to evaluate which diabetes medication with proven CVD benefit is best for them
--- NOTE | 2024-09-21 12:01 | Pharmacy Report ---
Pharmacist Stroke Counseling - Date of Service September 21, 2024 - Scope: Pharmacy has been consulted to provide medication discharge counseling for this patient admitted with stroke like symptoms s/p TNK as per the Pharmacist Discharge Counseling for Stroke Patients Protocol. - Medications on Discharge: Home Medications Medication Instructions Recorded Confirmed aspirin 81 mg tablet,delayed 81 mg PO DAILY 09/16/24 09/16/24 release carbamazepine 200 mg tablet 300 mg PO BID 09/16/24 09/16/24 cyanocobalamin (vitamin B-12) 1,000 mcg PO DAILY 09/16/24 09/16/24 1,000 mcg tablet (Vitamin B-12) metoprolol succinate 25 mg 25 mg PO DAILY 09/16/24 09/16/24 tablet,extended release 24 hr rosuvastatin 40 mg tablet 40 mg PO DAILY 09/16/24 09/16/24 vitamin B complex 1 tab PO DAILY 09/16/24 09/16/24 New Rx's Medication Instructions Recorded clopidogrel 75 mg tablet (Plavix) 75 mg PO DAILY 21 days #21 tabs 09/17/24 - Action: The above medications, specifically ones for stroke treatment/prophylaxis, have been reviewed in detail with the patient and/or patient sales account representative(s) prior to discharge. This includes indication, common adverse reactions, drug interactions, and medication administration. Medication counseling has been employed using the teach-back method to ensure understanding. - Outcome: The patient and/or patient sales account representative(s) have demonstrated understanding of the medications. Additional comments: Spoke with patient and his (with patient consent) since he had difficulty hearing. He is aware of new prescription for clopidogrel and has started taking as prescribed. They are aware that he is to only take x 3 weeks with aspirin and then continue the aspirin alone. Patient's stated that he has been on this medication before and tolerated it well. They had no additional questions or concerns and stated that his follow up appointment was later this week. Thank you for allowing pharmacy to be involved in the care of this patient. Please call [phone] with any additional questions
== END 2024-09-17 14:59 | disposition home or self-care (01) | DRG 62 ==
LOC: ED 11:06 → SUATTDRO 13:46 → 1E 13:46

== ENCOUNTER 2024-09-28 17:39 | Inpatient (IN) ==
[2024-09-28] MEDS: OPTIRAY 320 125ml IV ONE (17:48)
--- NOTE | 2024-09-28 18:18 | CT Scan Report ---
EXAM: CT angio neck with con CLINICAL HISTORY: Neurodeficit TECHNIQUE: Contiguous CTA axial images were obtained through the neck with the administration of intravenous contrast. Sagittal and coronal reformations are supplied. MIPS are supplied. COMPARISON: Brain MR 09/16/2024 FINDINGS: A left-sided aortic arch is present with appropriate takeoff of the great vessels and no hemodynamically significant stenosis at their origins. Right: Mild calcified atherosclerotic plaque involving the carotid artery bulb and proximal internal carotid artery with no hemodynamically significant stenosis or thrombus. The distal internal carotid artery enters the petrous portion of the skull base normally. LEFT: Mild calcified atherosclerotic plaque involving the carotid artery bulb and proximal internal carotid artery with no hemodynamically significant stenosis or thrombus. The distal internal carotid artery enters the petrous portion of the skull base normally. Vertebral arteries enhance normally. The left vertebral artery is dominant. Advanced atherosclerotic disease of the distal vertebral arteries present which are opacified with high-grade stenosis. No thrombus identified. Both contribute to the basilar artery at the level of the brainstem. IMPRESSION: No CT evidence of an acute vascular abnormality in the neck. Atherosclerotic disease of the distal vertebral arteries with high-grade stenosis, both contributing to the basilar artery. Findings discussed with Dr. Kosta Riggs in the emergency department at 6:15 PM EST on 09/28/2024 ACT 112: Positive. There are findings on this examination that require communication between the performing entity and the patient following Patient Test Result Information Act [place] ACT 112) guidelines. ACT 112: Positive. There are findings on this examination that require communication between the performing entity and the patient following Patient Test Result Information Act [place] ACT 112[place] guidelines. ACT 112: Positive. There are findings on this examination that require communication between the performing entity and the patient following Patient Test Result Information Act ([place] ACT 112[place] guidelines. Electronically signed by Brenda Stewart 09-28-2024 6:18 PM
[2024-09-28 18:19] LABS: Hematocrit (blood only) 44.3 % (42.0-52.0); Hemoglobin 14.6 g/dl (14.0-18.0); Immature Granulocytes # (auto) 0.01 K/uL (0.01-0.20); Immature Granulocytes % (auto) 0.2 %; Mean Corpuscular Hemoglobin 29.3 pg (25.0-34.0); Mean Corpuscular Volume 88.8 fL (80.0-100.0); Platelet Count 169 K/uL (130-400); RDW Standard Deviation 45.1 fL (36.4-46.3); Red Blood Count 4.99 M/uL (4.70-6.10); White Blood Count 4.22 K/ul (4.8-10.8)
--- NOTE | 2024-09-28 18:20 | CT Scan Report ---
EXAM: CTA head with CLINICAL HISTORY: Neurodeficit TECHNIQUE: Contiguous CTA axial images were obtained through the head after the administration of intravenous contrast. Sagittal and coronal reformations are supplied. PRIORS: None FINDINGS: Moderate calcified atherosclerotic disease involving the internal carotid arteries in the cavernous sinuses with moderate stenosis in patent with contrast noted. No thrombus. High-grade calcified atherosclerotic disease of the distal bilateral vertebral arteries with high-grade stenosis. The vertebral arteries form the basilar artery at the skull base. [place] is patent. No thrombus or hemodynamically significant stenosis. No aneurysmal dilatation or neri aneurysm. No enhancing mass in the brain. IMPRESSION: 1. High-grade atherosclerotic disease of the bilateral distal vertebral arteries with high-grade stenosis without an acute thrombus identified. 2. Moderate calcified atherosclerotic disease of the bilateral internal carotid arteries in the cavernous sinuses with no thrombus or high-grade occlusion. Findings discussed with Dr. Kosta Riggs in the emergency department at 6:15 PM EST on 09/28/2024 ACT 112: Positive. There are findings on this examination that require communication between the performing entity and the patient following Patient Test Result Information Act ([place] ACT 112) guidelines. Electronically signed by Brenda Stewart 09-28-2024 6:18 PM
--- NOTE | 2024-09-28 18:20 | CT Scan Report ---
EXAMINATION: Head CT without CLINICAL HISTORY: PRIORS: 09/17/2024 CT, 09/16/2024 MR TECHNIQUE: Contiguous axial images were obtained through the head without the use of intravenous contrast. Sagittal and coronal reformations are supplied. FINDINGS: Mild diffuse parenchymal volume loss noted with small vessel occlusive disease. Peters-white differentiation is preserved. No edema or midline shift. No intra-axial or extra-axial hemorrhage. Ventricles are normal in size and configuration. Brainstem and cerebellum have a normal appearance. Calvarium unremarkable. Paranasal sinuses and mastoid air cells are well-pneumatized. Globes are intact. No retrobulbar abnormality. Advanced atherosclerotic disease of the vertebral arteries at the level of the brainstem. IMPRESSION: No CT evidence of an acute intracranial abnormality. Findings discussed with Dr. Kosta Riggs in the emergency department at 6:15 PM EST on 09/28/2024 Electronically signed by Brenda Stewart 09-28-2024 6:19 PM
[2024-09-28 18:38] LABS: Alanine Aminotransferase 248.0 U/L (7-52); Albumin Globulin Ratio 1.4 (0.9-2); Alkaline Phosphatase 89.0 U/L (34-104); Anion Gap 8.0 (3-11); Bilirubin,Total 0.3 mg/dl (0.2-1.0); Blood Urea Nitrogen 15.0 mg/dl (6-23); Calcium 9.4 mg/dl (8.6-10.3); Carbon Dioxide 26.0 mmol/L (21-32); Chloride 99.0 mmol/L (98-107); Creatinine Clr Calc Pharmacy 96.8 ml/min; Globulin 3.2 gm/dl (2.5-4.0); Glucose 221.0 mg/dl (70-99(Fasting)); Magnesium 2.2 mg/dl (1.7-2.4); Potassium 4.0 mmol/L (3.5-5.1); Sodium 133.0 mmol/L (136-145); Total Protein 7.7 gm/dl (6.0-8.3)
[2024-09-28 18:48] LABS: INR 1.0 (0.9-1.1); Partial Thromboplastin Time 23 Seconds (21-31); Prothrombin Time 10.9 Seconds (9.0-12.0)
--- NOTE | 2024-09-28 19:37 | Communication Note ---
Date of Service: September 28, 2024 The patient was seen and examined in emergency room in presence of the family members He was brought in with strokelike symptoms complaining of right facial droop and numbness close weakness involving the right sided extremities Has had teleneuro consult and advised to have Keppra load for possible seizure His symptoms have improved during examination only complains to have some numbness involving the right face On examination Lying in bed without any acute distress Hemodynamically stable and is afebrile Chestbilateral decreased breath sounds without crackles HeartS1-S2 with 2/6 ESM over precordium Abdomendistended, soft and pulsatile present Extremitiestrace edema bilaterally and seems to be chronic CNSno dysarthria, no facial asymmetry or drooping, sensory impairment on the right face and no motor deficit His admission labs, EKG and imaging studies reviewed CTA and CT of the head did not show any significant abnormality will need to h ave MRI Has had echo on of last month Possible seizure and loaded with Keppra Keppra and will continue and get the Tegretol level Will get formal neurology consult and continue current medications Agree with assessment plan as outlined above by JORGE Dubose and take the full responsibility of care in the hospital DR Robe Helm
--- NOTE | 2024-09-28 19:54 | History & Physical Report ---
Date of Service September 28, 2024 Assessment & Plan (1) Stroke-like symptoms: Plan: Patient is a 69 year old M with a past medical history of partial complex seizure disorder, CVA, Paroxysmal atrial fibrillation, Ischemic cardiomyopathy, CAD s/p CABG x 3 on 10/15/21, Hypertension, dyslipidemia, DM Type II non-insulin dependent, PATRICIA, morbid obesity, Arthritis, Esophageal reflux presenting with stroke like symptoms. Symptoms began at 1300 today with diaphoresis and nausea then progressed to slurred speech, numbness to right side of body, and right eyelid dropping at 1615. Patient has a seizure disorder, managed on carbamazepine with therapeutic levels checked last week. Nausea and diaphoresis are typical symptoms with his seizure disorder and thought this was related, but then worsened with more focal changes. Stroke-like symptoms #Seizure disorder,simple partial * Admit to PCU Tele for further workup and management * MRI wo contrast for further stroke workup- ordered * Echo from last admit 09/16/2024 showing LVEF 55-60%, Grade I diastolic dysfunction, mildly dilated left atrium, PFO with mild [id number] shunting. * Tele Neuro consult in ED and formal consult to follow- EEG study ordered * Keppra 2gm loading dose given in ED--> will start Keppra 500 mg BID dosing tomorrow morning * Continue home carbamazepine- therapeutic level pending * Dysphagia screening needed- ordered; NPO for now * PT/OT consult when appropriate #Ischemic cardiomyopathy #CAD s/p CABG x 3 #Dyslipidemia * Continue home Aspirin and Plavix * Continue rosuvastatin 40 mg daily as per home regimen * Check lipids with AM labs * LDL above goal OP, 98 with last check #Parox A fib postoperative * Continue home metoprolol for rate control * NSR here * Tele monitoring * Ziopatch removed for MRI-->Possible Ziopatch monitoring for OP mgmt at d/c #DM Type II non-insulin dependent * Check A1C with Am labs * Accucheck ACHS * Consider SSI pending A1C--> patient uses diet-control with no oral meds at home DVT Ppx: On Aspirin and Plvix; SCDs ordered Code status: Full PCP: Eli Ahmadi PA-C Dispo: Admit to PCU Tele for further workup Patient seen in collaboration with Dr. Helm. Please see addendum.I spent a total of 70 minutes coordinating, documenting and providing care for this patient excluding time spent in the performance of separately billed services or time spent by another provider/QHP. 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 Symptoms began at 1300 today with diaphoresis and nausea then progressed to slurred speech, numbness to right side of body, and right eyelid dropping at 1615. Patient has a seizure disorder, managed on carbamazepine with therapeutic levels checked last week. Nausea and diaphoresis are typical symptoms with his seizure disorder and thought this was related, but then worsened with more focal changes. Denies fever, chills, weight loss, headache, vision/hearing changes, chest pain, SOB, swelling, difficulty breathing, urinary concerns, vomiting, diarrhea, joint swelling/pain, ambulation difficulty, skin rashes, lesions, bleeding, bruising. In the emergency department, patient was hemodynamically stable with no signs of infection or hypoxia. EKG showed Sinus rhythm with 1st degree A-V block, vent rate 73 bpm, QTc 478. Chest Xray showed patchy alveolar opacities in the left lower zone may signify some inflammatory infiltrates; No acute collapse or consolidation is seen on either side. Head CT revealed no evidence of an acute intracranial abnormality. Head and Neck CTA showing high-grade atherosclerotic disease of the bilateral distal vertebral arteries with high-grade stenosis without an acute thrombus identified; Moderate calcified atherosclerotic disease of the bilateral internal carotid arteries in the cavernous sinuses with no thrombus or high- grade occlusion. No TNK given. Tele Neurology consult with recommendation to give Keppra loading dose, check Carbamazepine level and will see patient tomorrow. Patient was admitted on 09/16 with stroke like symptoms and was given TNK with relief of symptoms. Echo from admission showing LVEF 55-60%, Grade I diastolic dysfunction, mildly dilated left atrium,PFO with mild [id number] shunting. Had Zio patch initiated at time of discharge with rec to follow up with Neurology and Cardiology. As per external chart review, patient was seen by PCP on 09/23/2024 for hosp follow up. Has not seen Cardiology or Neurology for hosp followup yet. History obtained primarily from the patient and via hospitalization record. The patient's family was at the bedside and assisted with past medical history, current illness, and medications. External chart review obtained from [email or web address]. Allergies Allergy/AdvReac Type Severity Reaction Status Date / Time morphine AdvReac Intermediate Nausea/almost Verified 09/28/24 18:06 "passed out" when had medicine Home Medications Medication Instructions Recorded Confirmed Type aspirin 81 mg tablet,delayed 81 mg PO DAILY 09/16/24 09/28/24 History release carbamazepine 200 mg tablet 400 mg PO BID 09/16/24 09/28/24 History cyanocobalamin (vitamin B-12) 1,000 mcg PO DAILY 09/16/24 09/28/24 History 1,000 mcg tablet (Vitamin B-12) metoprolol succinate 25 mg 25 mg PO DAILY 09/16/24 09/28/24 History tablet,extended release 24 hr rosuvastatin 40 mg tablet 40 mg PO DAILY 09/16/24 09/28/24 History vitamin B complex 1 tab PO DAILY 09/16/24 09/28/24 History clopidogrel 75 mg tablet (Plavix) 75 mg PO DAILY 21 days #21 tabs 09/17/24 09/28/24 Rx Reservatol Tablet 420 mg PO DAILY 09/28/24 09/28/24 History cholecalciferol (vitamin D3) 25 25 mcg PO DAILY 09/28/24 09/28/24 History mcg (1,000 unit) capsule (Vitamin D3) multivitamin 1 tab PO DAILY 09/28/24 09/28/24 History levetiracetam 500 mg tablet 500 mg PO BID #60 tabs 09/29/24 Rx (Keppra) ondansetron 4 mg disintegrating 4 mg PO Q8H PRN nausea and 09/29/24 Rx tablet vomiting 4 days #14 tabs Past Med/Surg History Problem List (Updated 09/28/24 @ 22:49 by Kosta Voss MD) Intracranial atherosclerosis Stroke-like symptoms (Acute) Thrombolytic medication administered within last 5 days (Acute) Stroke (Acute) CAD (coronary artery disease) Dyslipidemia HTN (hypertension) (Acute) Type 2 diabetes mellitus Medical History S/P stroke due to cerebrovascular disease 1991 Esophageal reflux History of basal cell carcinoma Ischemic cardiomyopathy PATRICIA on CPAP PAF (paroxysmal atrial fibrillation) post-operative Seizure disorder, simple partial, without intractable epilepsy Ascending aorta dilation Dilated aortic root Surgical History Status post left hip replacement S/P appendectomy Status post total bilateral knee replacement History of carpal tunnel surgery of right wrist S/P CABG x 3 CABG on 10/15/21 with GORDON-LAD, SVG to diagonal, SVG to PDA Family History Other Diabetes Hypertension Lymphoma Stroke Social History Smoking Status: Never smoker Second Hand Exposure: No; Do You Dip or Chew Tobacco: No; Hx Alcohol Use: No Hx Substance Use: No Preferred Language: Portuguese Communication Ability: Effective Gas Appliance Servicer Required: No Beliefs That Will Affect Care: None Current Living Situation: Spouse Feels Safe at Home: Yes Assistive Devices: CPAP Review of Systems Review of Systems: All systems reviewed & are unremarkable except as noted in HPI & below Physical Exam Physical Exam: VITALS: Reviewed. WEIGHT/BMI reviewed. GEN: Obese, well-developed, NAD. PSYCH: AOx3. Normal mood and affect HEENT -Head: NC/AT; -Eyes: PERRL, EOMI. No discharge or redn ess; -Ears: External ears are normal. -Nose: Normal nares. -Mouth and throat: MMM. Normal gums, muc patricia, palate,. Good dentition. NECK: Supple, with no masses. CV: RRR, no m/r/g. LUNGS: CTAB, diminshed, no w/r/c. ABD: Soft, NT/ND, NBS, no masses or organomegaly. : N/A SKIN: Warm, well perfused. No skin rashes or abnormal lesions. MSK: No deformities, Normal gait. EXT: No clubbing, cyanosis, or edema. NEURO: Normal muscle strength and tone. Right eyelid droop, sensation diminished to right arm, symmetric facial expressions, speech garbled, AAOx3. Results & Data Results & Data Vital Signs (Past 12 Hours) Vital Signs Pulse Pulse Resp BP BP Pulse Ox O2 Del Method 09/28/24 19:27 65 18 151/83 H 96 Room Air 09/28/24 18:59 70 18 170/94 H 94 Room Air 09/28/24 18:45 67 19 170/94 H 95 Room Air 09/28/24 18:01 72 09/28/24 17:41 73 18 170/83 H 98 Room Air Laboratory Results Short CBC 09/28/24 Range/Units 18:03 WBC 4.22 L (4.8-10.8) K/ul Hgb 14.6 (14.0-18.0) g/dl Hct 44.3 (42.0-52.0) % Plt Count 169 (130-400) K/uL BMP 09/28/24 18:03 Sodium 133 L Potassium 4.0 Chloride 99 Carbon Dioxide 26 BUN 15 Creatinine 0.87 Glucose 221 H Calcium 9.4 Liver Function 09/28/24 Range/Units 18:03 Total Bilirubin 0.3 (0.2-1.0) mg/dl AST 120 H (13-39) U/L ALT 248 H (7-52) U/L Alkaline Phosphatase 89 (34-104) U/L Albumin 4.5 (3.4-5.0) gm/dl Diagnostic Findings Head CT 09/28/24 17:42 EXAMINATION: Head CT without CLINICAL HISTORY: PRIORS: 09/17/2024 CT, 09/16/2024 MR TECHNIQUE: Contiguous axial images were obtained through the head without the use of intravenous contrast. Sagittal and coronal reformations are supplied. FINDINGS: Mild diffuse parenchymal volume loss noted with small vessel occlusive disease. Peters-white differentiation is preserved. No edema or midline shift. No intra-axial or extra-axial hemorrhage. Ventricles are normal in size and configuration. Brainstem and cerebellum have a normal appearance. Calvarium unremarkable. Paranasal sinuses and mastoid air cells are well-pneumatized. Globes are intact. No retrobulbar abnormality. Advanced atherosclerotic disease of the vertebral arteries at the level of the brainstem. IMPRESSION: No CT evidence of an acute intracranial abnormality. Findings discussed with Dr. Kosta Riggs in the emergency department at 6:15 PM EST on 09/28/2024 Electronically signed by Brenda Stewart 09-28-2024 6:19 PM Head CTA 09/28/24 17:42 EXAM: CT angio neck with con CLINICAL HISTORY: Neurodeficit TECHNIQUE: Contiguous CTA axial images were obtained through the neck with the administration of intravenous contrast. Sagittal and coronal reformations are supplied. MIPS are supplied. COMPARISON: Brain MR 09/16/2024 FINDINGS: A left-sided aortic arch is present with appropriate takeoff of the great vessels and no hemodynamically significant stenosis at their origins. Right: Mild calcified atherosclerotic plaque involving the carotid artery bulb and proximal internal carotid artery with no hemodynamically significant stenosis or thrombus. The distal internal carotid artery enters the petrous portion of the skull base normally. LEFT: Mild calcified atherosclerotic plaque involving the carotid artery bulb and proximal internal carotid artery with no hemodynamically significant stenosis or thrombus. The distal internal carotid artery enters the petrous portion of the skull base normally. Vertebral arteries enhance normally. The left vertebral artery is dominant. Advanced atherosclerotic disease of the distal vertebral arteries present which are opacified with high-grade stenosis. No thrombus identified. Both contribute to the basilar artery at the level of the brainstem. IMPRESSION: No CT evidence of an acute vascular abnormality in the neck. Atherosclerotic disease of the distal vertebral arteries with high-grade stenosis, both contributing to the basilar artery. Findings discussed with Dr. Kosta Riggs in the emergency department at 6:15 PM EST on 09/28/2024 ACT 112: Positive. There are findings on this examination that require communication between the performing entity and the patient following Patient Test Result Information Act [place] ACT 112) guidelines. ACT 112: Positive. There are findings on this examination that require communication between the performing entity and the patient following Patient Test Result Information Act [place] ACT 112[place] guidelines. ACT 112: Positive. There are findings on this examination that require communication between the performing entity and the patient following Patient Test Result Information Act ([place] ACT 112[place] guidelines. Electronically signed by Brenda Stewart 09-28-2024 6:18 PM Neck CTA 09/28/24 17:42 EXAM: CTA head with CLINICAL HISTORY: Neurodeficit TECHNIQUE: Contiguous CTA axial images were obtained through the head after the administration of intravenous contrast. Sagittal and coronal reformations are supplied. PRIORS: None FINDINGS: Moderate calcified atherosclerotic disease involving the internal carotid arteries in the cavernous sinuses with moderate stenosis in patent with contrast noted. No thrombus. High-grade calcified atherosclerotic disease of the distal bilateral vertebral arteries with high-grade stenosis. The vertebral arteries form the basilar artery at the skull base. [place] is patent. No thrombus or hemodynamically significant stenosis. No aneurysmal dilatation or neri aneurysm. No enhancing mass in the brain. IMPRESSION: 1. High-grade atherosclerotic disease of the bilateral distal vertebral arteries with high-grade stenosis without an acute thrombus identified. 2. Moderate calcified atherosclerotic disease of the bilateral internal carotid arteries in the cavernous sinuses with no thrombus or high-grade occlusion. Findings discussed with Dr. Kosta Riggs in the emergency department at 6:15 PM EST on 09/28/2024 ACT 112: Positive. There are findings on this examination that require communication between the performing entity and the patient following Patient Test Result Information Act [place] ACT 112[place] guidelines. Electronically signed by Brenda Stewart 09-28-2024 6:18 PM Code Status & VTE Plan VTE Prophylaxis Plan VTE Prophylaxis will be ordered: Yes Supervising Physician Co-Signing Physician Notes Date of Service: September 28, 2024 The patient was seen and examined in emergency room in presence of the family members He was brought in with strokelike symptoms complaining of right facial droop and numbness close weakness involving the right sided extremities Has had teleneuro consult and advised to have Keppra load for possible seizure His symptoms have improved during examination only complains to have some numbness involving the right face On examination Lying in bed without any acute distress Hemodynamically stable and is afebrile Chestbilateral decreased breath sounds without crackles HeartS1-S2 with 2/6 ESM over precordium Abdomendistended, soft and pulsatile present Extremitiestrace edema bilaterally and seems to be chronic CNSno dysarthria, no facial asymmetry or drooping, sensory impairment on the right face and no motor deficit His admission labs, EKG and imaging studies reviewed CTA and CT of the head did not show any significant abnormality will need to have MRI Has had echo on of last month Possible seizure and loaded with Keppra Keppra and will continue and get the Tegretol level Will get formal neurology consult and continue current medications Agree with assessment plan as outlined above by JORGE Dubose and take the full responsibility of care in the hospital DR Robe Helm (4) CAD (coronary artery disease) Associated angina: without angina Coronary Disease-Associated Artery/Lesion type: [place] artery [place] vs. transplanted heart: [place] heart Qualified Code(s): I25.10 - Atherosclerotic heart disease of [place] coronary artery without angina pectoris (7) Type 2 diabetes mellitus Diabetes mellitus complication status: without complication Diabetes mellitus jail insulin use: without remote computer terminal operator use Qualified Code(s): E11.9 - Type 2 diabetes mellitus without complications
[2024-09-28] MEDS: ONDANSETRON INJ 2 MG/ML 2 ML VIAL IV ONE (19:57)
--- NOTE | 2024-09-28 20:18 | XRay Report ---
EXAM: XR chest 1V portable CLINICAL HISTORY: Neuro deficit, acute stroke suspected TECHNIQUE: An X-ray image of the chest is obtained in AP portable projection. COMPARISON: No prior studies are available for comparison. FINDINGS: Pulmonary Parenchyma: Patchy alveolar opacities in the left lower zone may signify some inflammatory infiltrates. Clinical correlation is advised. No evidence of consolidation, or collapse. No evidence of pleural effusion or pleural thickening. Heart and Mediastinum: Poor inspiratory effort. Heart size and shape are normal. No mediastinal widening or masses. No hilar or mediastinal lymphadenopathy. Bony Thorax: Bony thorax appears intact without fractures or deformities. Soft Tissues: Soft tissues overlying the chest wall are unremarkable. A cardiac monitoring device is seen in place. IMPRESSION: 1. Poor inspiratory effort. 2. Patchy alveolar opacities in the left lower zone may signify some inflammatory infiltrates. Clinical correlation is advised. 3. No acute collapse or consolidation is seen on either side. Electronically signed by Duane Robins 09-28-2024 8:18 PM
[2024-09-28] MEDS ORDERED: MAGNESIUM HYDROXIDE SUSP 30 ML UDC PO PRN (22:22)
[2024-09-28] MEDS ORDERED: ACETAMINOPHEN 325 MG TAB PO PRN (22:22)
[2024-09-28] MEDS ORDERED: ALUMINUM/MAGNESIUM SUSP 30 ML UDC PO PRN (22:22)
[2024-09-28] MEDS ORDERED: POLYETHYLENE (MIRALAX) 17 GM PACK PO PRN (22:22)
[2024-09-28] MEDS ORDERED: ONDANSETRON INJ 2 MG/ML 2 ML VIAL IV PRN (22:22)
[2024-09-28] MEDS ORDERED: PHARMACIST DISCHARGE MED REC CONSULT PRN (22:22)
--- NOTE | 2024-09-28 22:49 | Emergency Department Note ---
History of Present Illness General Chief complaint: Stroke/CVA Symptoms Stated complaint: STROKE, Time Seen by Provider: 09/28/24 17:41 Source: patient and family () History of Present Illness Provider complaint: Strokelike symptoms 69-year-old male presents emergency department for strokelike symptoms. reports that at 1330 the patient had a partial complex seizure. She reports that at 1615 he started having dysarthria and facial asymmetry. No falls or traumas. Home Medications Medication Instructions Recorded Confirmed Type aspirin 81 mg tablet,delayed 81 mg PO DAILY 09/16/24 09/28/24 History release carbamazepine 200 mg tablet 400 mg PO BID 09/16/24 09/28/24 History cyanocobalamin (vitamin B-12) 1,000 mcg PO DAILY 09/16/24 09/28/24 History 1,000 mcg tablet (Vitamin B-12) metoprolol succinate 25 mg 25 mg PO DAILY 09/16/24 09/28/24 History tablet,extended release 24 hr rosuvastatin 40 mg tablet 40 mg PO DAILY 09/16/24 09/28/24 History vitamin B complex 1 tab PO DAILY 09/16/24 09/28/24 History clopidogrel 75 mg tablet (Plavix) 75 mg PO DAILY 21 days #21 tabs 09/17/24 09/28/24 Rx Reservatol Tablet 420 mg PO DAILY 09/28/24 09/28/24 History ascorbic acid (vitamin C) 1,000 mg 1,000 mg PO DAILY 09/28/24 09/28/24 History tablet (Vitamin C) blue-green algae (bulk) (Spirulina 1,400 ea miscellaneous BID 09/28/24 09/28/24 History powder) cholecalciferol (vitamin D3) 25 25 mcg PO DAILY 09/28/24 09/28/24 History mcg (1,000 unit) capsule (Vitamin D3) multivitamin 1 tab PO DAILY 09/28/24 09/28/24 History Allergies Allergy/AdvReac Type Severity Reaction Status Date / Time morphine AdvReac Intermediate Nausea/almost Verified 09/28/24 18:06 "passed out" when had medicine Past Med/Surg History Problem List (Updated 09/28/24 @ 22:49 by Kosta Voss MD) Intracranial atherosclerosis Stroke-like symptoms (Acute) Thrombolytic medication administered within last 5 days (Acute) Stroke (Acute) CAD (coronary artery disease) Dyslipidemia HTN (hypertension) (Acute) Type 2 diabetes mellitus Medical History S/P stroke due to cerebrovascular disease 1991 Esophageal reflux History of basal cell carcinoma Ischemic cardiomyopathy PATRICIA on CPAP PAF (paroxysmal atrial fibrillation) post-operative Seizure disorder, simple partial, without intractable epilepsy Ascending aorta dilation Dilated aortic root Surgical History Status post left hip replacement S/P appendectomy Status post total bilateral knee replacement History of carpal tunnel surgery of right wrist S/P CABG x 3 CABG on 10/15/21 with GORDON-LAD, SVG to diagonal, SVG to PDA Family History Other Diabetes Hypertension Lymphoma Stroke Social History Smoking Status: Never smoker Second Hand Exposure: No; Do You Dip or Chew Tobacco: No; Tobacco Cessation Education Requested by Patient: No Hx Alcohol Use: No Hx Substance Use: No Preferred Language: Haitian Communication Ability: Effective 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 Beliefs That Will Affect Care: None Current Living Situation: Spouse Other Information That Helps Us Care for You: No Feels Safe at Home: Yes Safety Concerns: Feels Safe At This Time Assistive Devices: CPAP and Hearing Aid - Bilateral Physical Exam Vital Signs Vital Signs - 24 hr 09/28/24 17:41 09/28/24 18:01 09/28/24 18:45 Pulse Rate 73 72 Pulse Rate [Apical] 67 Pulse Rhythm [Apical] Pulse Strength [Apical] Respiratory Rate 18 19 Respiratory Effort / Characteristics Non-Labored Spontaneous Non-Labored Spontaneous Respiratory Depth Normal Normal Respiratory Pattern Regular Regular Blood Pressure 170/83 H Blood Pressure [Right Arm] 170/94 H Blood Pressure Mean 112 Blood Pressure Mean [Right Arm] 119 Blood Pressure Position [Right Arm] Semi-fowlers Pulse Oximetry 98 95 Oxygen Delivery Method Room Air Room Air Sepsis Recent Fever Within 48 Hours No Sepsis New/Unexplained Change in Mental Status N/A Sepsis Action Taken by Nursing No Action Required 09/28/24 18:59 09/28/24 19:27 Pulse Rate Pulse Rate [Apical] 70 65 Pulse Rhythm [Apical] Regular Regular Pulse Strength [Apical] Normal Normal Respiratory Rate 18 18 Respiratory Effort / Characteristics Non-Labored Non-Labored Respiratory Depth Normal Normal Respiratory Pattern Regular Regular Blood Pressure Blood Pressure [Right Arm] 170/94 H 151/83 H Blood Pressure Mean Blood Pressure Mean [Right Arm] 119 105 Blood Pressure Position [Right Arm] Lying Lying Pulse Oximetry 94 96 Oxygen Delivery Method Room Air Room Air Sepsis Recent Fever Within 48 Hours Sepsis New/Unexplained Change in Mental Status Sepsis Action Taken by Nursing Physical Exam HENT: Exam performed. - Head: Normocephalic and atraumatic. EYES: Conjunctivae and EOM are normal. Right eye exhibits no discharge. Left eye exhibits no discharge. No scleral icterus. NECK: Normal range of motion. Neck supple. No JVD present. CV: Normal rate, regular rhythm, normal heart sounds and intact distal pulses. There is no peripheral edema. Palpable radial pulses bue. PULM/CHEST: Effort normal and breath sounds normal. No respiratory distress. No stridor. no wheezes. no rales. NEURO: NIHSS: 3 (4:1, 8:1, 10:1) Course Course 175: The patient was evaluated in room A1. A complete history and physical exam was performed Cardiac monitoring: An order was placed for continuous cardiac monitoring. The monitor shows a rate of 70 with sinus rhythm interpreted by me Stroke alert was activated from triage. External medical records reviewed. Patient received TNKase for strokelike symptoms on September 16, 2024, 2 weeks ago. Patient also had a reported complex seizure prior to his symptoms earlier today. Given this patient is not a candidate for TNKase. CT of the head viewed by fl shows no ICH. 1844: Vital signs stable. Labs and imaging are unremarkable, unchanged from previous CTAs which showed atherosclerosis of the vertebral arteries also. There is concerned that the patient's symptoms might have had a Federico's paralysis given his reported seizure earlier. Discussed the case with Dr. Erika Liu neurology. After discussion with him, we will load the patient with Anjana. Patient will be admitted to the medicine service. Administered Medications Discontinued Medications Ioversol (Optiray 320 125ml) 115 ml IV ONCE ONE Stop: 09/28/24 17:49 Last Admin: 09/28/24 17:48 Dose: 115 ml Documented By: CHAVEZ Levetiracetam (Levetiracetam 500 Mg/5 Ml Vial) 2,000 mg IV NOW STA Stop: 09/28/24 18:45 Last Admin: 09/28/24 18:57 Dose: 2,000 mg Documented By: MAIN Ondansetron HCl (Ondansetron Inj 2 Mg/Ml 2 Ml Vial) 4 mg IV NOW ONE Stop: 09/28/24 19:55 Last Admin: 09/28/24 19:57 Dose: 4 mg Documented By: KEN Medical Decision Making Laboratory Data Attestation: I reviewed the patient's lab results. 09/28/24 18:03 09/28/24 18:03 Lab Results 09/28/24 09/28/24 Range/Units 18:00 18:03 WBC 4.22 L (4.8-10.8) K/ul RBC 4.99 (4.70-6.10) M/uL Hgb 14.6 (14.0-18.0) g/dl Hct 44.3 (42.0-52.0) % MCV 88.8 (80.0-100.0) fL MCH 29.3 (25.0-34.0) pg MCHC 33.0 (32.0-36.0) g/dL RDW Std Deviation 45.1 (36.4-46.3) fL RDW Coeff of [place] 14.0 (11.5-14.5) % Plt Count 169 (130-400) K/uL MPV 9.2 L (9.4-12.4) fL Immature Gran % (Auto) 0.2 % Neut % (Auto) 70.0 % Lymph % (Auto) 15.6 % [place] % (Auto) 10.0 % Eos % (Auto) 3.3 % Baso % (Auto) 0.9 % Neut # (Auto) 2.95 (1.40-6.50) K/uL Lymph # (Auto) 0.66 L (1.20-3.40) K/uL [place] # (Auto) 0.42 (0.11-0.59) K/uL Eos # (Auto) 0.14 (0.00-0.50) K/uL Baso # (Auto) 0.04 (0.00-0.20) K/uL Immature Gran # (Auto) 0.01 (0.01-0.20) K/uL PT 10.9 (9.0-12.0) Seconds INR 1.0 (0.9-1.1) APTT 23 (21-31) Seconds PTT Ratio 0.9 Sodium 133 L (136-145) mmol/L Potassium 4.0 (3.5-5.1) mmol/L Chloride 99 (98-107) mmol/L Carbon Dioxide 26 (21-32) mmol/L Anion Gap 8 (3-11) BUN 15 (6-23) mg/dl Creatinine 0.87 (0.6-1.4) mg/dl Est Cr Clr Drug Dosing 96.8 ml/min eGFR 92.25 BUN/Creatinine Ratio 17.2 (10-20) Glucose 221 H (70-99(Fasting)) mg/dl POC Glucose 212 H (70-99) mg/dl Calcium 9.4 (8.6-10.3) mg/dl Magnesium 2.2 (1.7-2.4) mg/dl Total Bilirubin 0.3 (0.2-1.0) mg/dl AST 120 H (13-39) U/L ALT 248 H (7-52) U/L Alkaline Phosphatase 89 (34-104) U/L Troponin I High Sens 6.9 (0-20) pg/ml Total Protein 7.7 (6.0-8.3) gm/dl Albumin 4.5 (3.4-5.0) gm/dl Globulin 3.2 (2.5-4.0) gm/dl Albumin/Globulin Ratio 1.4 (0.9-2) Blood Type A Positive Antibody Screen NEGATIVE Imaging Data Attestation: I personally reviewed and interpreted this imaging study as follows: My Impression: CT head: No ICH Radiologist's Impression: Chest X-Ray 09/28/24 17:42 EXAM: XR chest 1V portable CLINICAL HISTORY: Neuro deficit, acute stroke suspected TECHNIQUE: An X-ray image of the chest is obtained in AP portable projection. COMPARISON: No prior studies are available for comparison. FINDINGS: Pulmonary Parenchyma: Patchy alveolar opacities in the left lower zone may signify some inflammatory infiltrates. Clinical correlation is advised. No evidence of consolidation, or collapse. No evidence of pleural effusion or pleural thickening. Heart and Mediastinum: Poor inspiratory effort. Heart size and shape are normal. No mediastinal widening or masses. No hilar or mediastinal lymphadenopathy. Bony Thorax: Bony thorax appears intact without fractures or deformities. Soft Tissues: Soft tissues overlying the chest wall are unremarkable. A cardiac monitoring device is seen in place. IMPRESSION: 1. Poor inspiratory effort. 2. Patchy alveolar opacities in the left lower zone may signify some inflammatory infiltrates. Clinical correlation is advised. 3. No acute collapse or consolidation is seen on either side. Electronically signed by Duane Robins 09-28-2024 8:[address] 09/28/24 17:42 EXAMINATION: Head CT without CLINICAL HISTORY: PRIORS: 09/17/2024 CT, 09/16/2024 MR TECHNIQUE: Contiguous axial images were obtained through the head without the use of intravenous contrast. Sagittal and coronal reformations are supplied. FINDINGS: Mild diffuse parenchymal volume loss noted with small vessel occlusive disease. Peters-white differentiation is preserved. No edema or midline shift. No intra-axial or extra-axial hemorrhage. Ventricles are normal in size and configuration. Brainstem and cerebellum have a normal appearance. Calvarium unremarkable. Paranasal sinuses and mastoid air cells are well-pneumatized. Globes are intact. No retrobulbar abnormality. Advanced atherosclerotic disease of the vertebral arteries at the level of the brainstem. IMPRESSION: No CT evidence of an acute intracranial abnormality. Findings discussed with Dr. Kosta Riggs in the emergency department at 6:15 PM EST on 09/28/2024 Electronically signed by Brenda Stewart 09-28-2024 6:19 PM Head CTA 09/28/24 17:42 EXAM: CT angio neck with con CLINICAL HISTORY: Neurodeficit TECHNIQUE: Contiguous CTA axial images were obtained through the neck with the administration of intravenous contrast. Sagittal and coronal reformations are supplied. MIPS are supplied. COMPARISON: Brain MR 09/16/2024 FINDINGS: A left-sided aortic arch is present with appropriate takeoff of the great vessels and no hemodynamically significant stenosis at their origins. Right: Mild calcified atherosclerotic plaque involving the carotid artery bulb and proximal internal carotid artery with no hemodynamically significant stenosis or thrombus. The distal internal carotid artery enters the petrous portion of the skull base normally. LEFT: Mild calcified atherosclerotic plaque involving the carotid artery bulb and proximal internal carotid artery with no hemodynamically significant stenosis or thrombus. The distal internal carotid artery enters the petrous portion of the skull base normally. Vertebral arteries enhance normally. The left vertebral artery is dominant. Advanced atherosclerotic disease of the distal vertebral arteries present which are opacified with high-grade stenosis. No thrombus identified. Both contribute to the basilar artery at the level of the brainstem. IMPRESSION: No CT evidence of an acute vascular abnormality in the neck. Atherosclerotic disease of the distal vertebral arteries with high-grade stenosis, both contributing to the basilar artery. Findings discussed with Dr. Kosta Riggs in the emergency department at 6:15 PM EST on 09/28/2024 ACT 112: Positive. There are findings on this examination that require communication between the performing entity and the patient following Patient Test Result Information Act [place] ACT 112) guidelines. ACT 112: Positive. There are findings on this examination that require communication between the performing entity and the patient following Patient Test Result Information Act [place] ACT 112[place] guidelines. ACT 112: Positive. There are findings on this examination that require communication between the performing entity and the patient following Patient Test Result Information Act ([place] ACT 112[place] guidelines. Electronically signed by Brenda Stewart 09-28-2024 6:18 PM Neck CTA 09/28/24 17:42 EXAM: CTA head with CLINICAL HISTORY: Neurodeficit TECHNIQUE: Contiguous CTA axial images were obtained through the head after the administration of intravenous contrast. Sagittal and coronal reformations are supplied. PRIORS: None FINDINGS: Moderate calcified atherosclerotic disease involving the internal carotid arteries in the cavernous sinuses with moderate stenosis in patent with contrast noted. No thrombus. High-grade calcified atherosclerotic disease of the distal bilateral vertebral arteries with high-grade stenosis. The vertebral arteries form the basilar artery at the skull base. [place] is patent. No thrombus or hemodynamically significant stenosis. No aneurysmal dilatation or neri aneurysm. No enhancing mass in the brain. IMPRESSION: 1. High-grade atherosclerotic disease of the bilateral distal vertebral arteries with high-grade stenosis without an acute thrombus identified. 2. Moderate calcified atherosclerotic disease of the bilateral internal carotid arteries in the cavernous sinuses with no thrombus or high-grade occlusion. Findings discussed with Dr. Kosta Riggs in the emergency department at 6:15 PM EST on 09/28/2024 ACT 112: Positive. There are findings on this examination that require communication between the performing entity and the patient following Patient Test Result Information Act ([place] ACT 112) guidelines. Electronically signed by Brenda Stewart 09-28-2024 6:18 PM ECG Data Attestation: I personally reviewed and interpreted this ECG as follows: Rate (beats per minute): 73 ECG Intervals/blocks: + First degree AV block, + Normal QRS and + Normal QT-c ECG ST segments: + Normal ST segments MDM Narrative 175: The patient was evaluated in room A1. A complete history and physical exam was performed Cardiac monitoring: An order was placed for continuous cardiac monitoring. The monitor shows a rate of 70 with sinus rhythm interpreted by me Stroke alert was activated from triage. External medical records reviewed. Patient received TNKase for strokelike symptoms on September 16, 2024, 2 weeks ago. Patient also had a reported complex seizure prior to his symptoms earlier today. Given this patient is not a candidate for TNKase. CT of the head viewed by me shows no ICH. 1845: Vital signs stable. Labs and imaging are unremarkable, unchanged from previous CTAs which showed atherosclerosis of the vertebral arteries also. There is concerned that the patient's symptoms might have had a Federico's paralysis given his reported seizure earlier. Discussed the case with Dr. Erika Liu neurology. After discussion with him, we will load the patient with Keppra. Patient will be admitted to the medicine service. Impression & Plan Stroke-like symptoms Discharge Plan Visit Data Chief Complaint: Stroke/CVA Symptoms Stated Complaint: STROKE, ED Provider: Kosta Voss Discharge Problem: Stroke-like symptoms Patient Disposition: Admitted As Inpatient Condition: Fair
--- NOTE | 2024-09-28 23:32 | Magnetic Resonance Report ---
Exam(s): MRI HEAD Without Contrast EXAM: MR Head Without Intravenous Contrast CLINICAL HISTORY: Reason for exam: stroke. TECHNIQUE: Magnetic resonance images of the head/brain without intravenous contrast in multiple planes. COMPARISON: Prior brain MRI from September 16, 2024. FINDINGS: Brain: There is a tiny acute ischemic injury within the right medulla oblongata without evidence of hemorrhagic transformation. Mild nonspecific white matter changes. No mass. No hemorrhage. The flow voids at the base of the Ventricles: Unremarkable. No ventriculomegaly. Bones/joints: Unremarkable. No acute fracture. Sinuses: Chronic ethmoid sinusitis. No acute sinusitis. Mastoid air cells: Unremarkable as visualized. No mastoid effusion. Orbits: Unremarkable as visualized. IMPRESSION: There is a tiny acute ischemic injury in the right medulla oblongata without evidence of hemorrhagic transformation. Communications: Verify Receipt Electronically signed by: Samantha Perez MD 09/28/24 23:31 PM
[2024-09-29] MEDS: FAMOTIDINE 20MG IV PUSH 20 MG/5 ML SYR IV STA (00:23)
[2024-09-29] MEDS: ASPIRIN 300 MG SUPP PR ONE (00:25)
[2024-09-29 06:13] LABS: Hematocrit (blood only) 40.7 % (42.0-52.0); Hemoglobin 13.4 g/dl (14.0-18.0); Immature Granulocytes # (auto) 0.02 K/uL (0.01-0.20); Immature Granulocytes % (auto) 0.4 %; Mean Corpuscular Hemoglobin 29.6 pg (25.0-34.0); Mean Corpuscular Volume 90.0 fL (80.0-100.0); Platelet Count 162 K/uL (130-400); RDW Standard Deviation 45.4 fL (36.4-46.3); Red Blood Count 4.52 M/uL (4.70-6.10); White Blood Count 5.00 K/ul (4.8-10.8)
[2024-09-29 06:37] LABS: Anion Gap 7.0 (3-11); Blood Urea Nitrogen 11.0 mg/dl (6-23); Calcium 8.6 mg/dl (8.6-10.3); Carbon Dioxide 26.0 mmol/L (21-32); Chloride 103.0 mmol/L (98-107); Cholesterol 141.0 mg/dl (0-200); Creatinine Clr Calc Pharmacy 127.6 ml/min; Glucose 163.0 mg/dl (70-99(Fasting)); HDL Cholesterol 34.0 mg/dl; Potassium 4.0 mmol/L (3.5-5.1); Sodium 136.0 mmol/L (136-145); Triglycerides 92.0 mg/dl (0-150)
[2024-09-29 07:09] VITALS: TEMP 97.7
--- NOTE | 2024-09-29 07:33 | Communication Note ---
Stroke Alert This provider called to bedside regarding neurologic changes with Huseyin Barrios 209. Per prior chart review and nurse report, prior deficits on arrival included sensation changes in right leg, bilateral cheek numbness, some right sided lower facial paralysis. On my exam, NIHSS of 6 with +1 for gaze palsy/blurred vision, +3 for upper and lower facial paralysis, +1 for sensation changes in right leg, +1 dysarthria. Delta NIHSS (to best of my ability to assess based on prior documentation, is 2 for worsening facial paralysis and gaze palsy. #Acute Medullary Infarct #New Stroke Like Symptoms -symptoms could correlate with current infarct given medulla but new and worsening -glucose 140, BP intact, electrolytes unremarkable -delta NIHSS of 2 for worsening facial paralysis and new disconjugate gaze palsy Plan: -code stroke called -CT head f/u, could be hemorrhagic conversion -teleneurology paged, appreciate recs -will check phos -permissive hypertension for now pending r/o hemorrhagic conversion Date of Service: September 29, 2024
[2024-09-29] MEDS ORDERED: POLYETHYLENE (MIRALAX) 17 GM PACK PO PRN (07:38)
[2024-09-29 08:06] LABS: Hemoglobin A1C 7.0 % (4.5-5.6)
[2024-09-29 08:07] VITALS: RESP 18
--- NOTE | 2024-09-29 08:41 | CT Scan Report ---
EXAM: CT head/brain wo con CLINICAL HISTORY: new stroke symptoms TECHNIQUE: Axial non-contrast CT scan of the brain was performed from the skull base to the high parietal region. One of the following dose reduction techniques were utilized for this exam: Automated exposure control, adjustment of the mA and/or kV according to patient size, use of iterative reconstruction. CTDI: 38.31 mGy, DLP: 703.85 mGycm COMPARISON: Prior CT dated 09/17/2024 for comparison. FINDINGS: Brain Parenchyma: Age related involutional changes. Unchanged small vessel ischemic changes in white matter of bilateral cerebral hemispheres. Normal attenuation of rest of cerebral hemispheres, cerebellum, and brainstem. No evidence of acute infarct, hemorrhage, or mass effect. Ventricular System: Ventricles are normal in size and configuration. No evidence of hydrocephalus or ventricular enlargement. Subarachnoid Spaces: Prominent sulci and cisterns. No evidence of subarachnoid hemorrhage or extra-axial fluid collections. Cerebellum and Brainstem: No masses, lesions, or areas of abnormal density. Orbits: Normal appearance of the globes, optic nerves, and extraocular muscles. No evidence of orbital masses or abnormal density. Sinuses: Mild mucosal thickening in bilateral ethmoid sinuses. Rest clear paranasal sinuses. Mastoid Air Cells: Clear mastoid air cells. No evidence of mastoiditis. Skull: Normal skull morphology. IMPRESSION: 1. No acute intracranial abnormality detected. 2. Age related involutional changes. 3. Unchanged small vessel ischemic changes in white matter of bilateral cerebral hemispheres. 4. No interval changes. 5. If strong clinical suspicion for acute ischmic insult, MRI with diffusion advised. Electronically signed by Duane Robins 09-29-2024 08:41 AM
--- NOTE | 2024-09-29 08:51 | XRay Report ---
XR chest 1V portable CLINICAL HISTORY: hypoxia COMPARISON STUDY: 09/28/2024 FINDINGS: Stable CABG. Stable cardiomegaly without pulmonary vascular congestion. Inspiration is shal low. No consolidation or pleural effusion seen. No pneumothorax. IMPRESSION: Limited exam due to shallow inspiration with no acute findings seen. ACT 112: Negative or not required by law. Electronically signed by: Khai Kent M.D. 09/29/2024 8:50 AM
[2024-09-29] MEDS: OPTIRAY 320 125ml IV ONE (08:58)
--- NOTE | 2024-09-29 09:15 | CT Scan Report ---
CT angio head w con CLINICAL HISTORY: neuro deficit, acute stroke suspected. TECHNIQUE: Unenhanced axial CT scan of the brain is performed. Subsequently, following the IV adminis tration of 120 cc of Optiray, CT angiogram of the brain was performed from the skull base to the vert ex. Images are reviewed in the axial, sagittal, and coronal planes. 3-D MIPS images are created and a ssessed. IV contrast was administered without complication. All measurements were obtained according to NASCET criteria. A dose lowering technique was utilized adhering to the principles of ALARA. CT DOSE: 641.99 mGy.cm COMPARISON STUDY: 09/28/2024 FINDINGS: There is stable small size of the distal vertebral arteries. Stable severe stenosis and mukesh rt segment occlusion distal right vertebral artery. Stable multifocal severe stenosis distal left zonia tebral artery. Distal internal carotid arteries show no significant narrowing. Basilar artery demonst rates stable mild narrowing, otherwise patent. Stable mild narrowing proximally at the left middle ce rebral artery. Anterior, middle, and posterior cerebral arteries are patent bilaterally. Stable 3 mm infundibulum versus tiny aneurysm at the basilar tip. Cerebral venous sinuses opacify normally. IMPRESSION: 1. Stable CTA of the brain. No adverse change seen. 2. Suggest follow-up CTA in one year to reevaluate the infundibulum versus tiny aneurysm at the basil ar tip. ACT 112: Positive. There are findings on this exam that require communication between the performing entity and the patient following Patient Test Result Information Act ([place] Act 112) guidelines. The above report was generated using voice recognition software. It may contain grammatical, syntax o r spelling errors. Electronically signed by: Khai Kent M.D. 09/29/2024 9:13 AM
--- NOTE | 2024-09-29 09:21 | CT Scan Report ---
CT ANGIOGRAPHY OF THE NECK WITH CONTRAST CLINICAL HISTORY: neuro deficit, acute stroke suspected COMPARISON STUDY: CTA of the neck September 28, 2024. Technique: CT angiography of the carotid and vertebral arteries was obtained using Optiray and 3D rec onstruction on an independent workstation. NASCET criteria was utilized. Automated exposure control was utilized for the study. A dose lowering technique was utilized adhering to the principles of ALA RA. Findings: Visualized portions of the lung apices are unremarkable. Medialization of the right vocal c ord is again noted. Is no cervical lymphadenopathy. No cervical spine fracture. The bilateral common carotid and cervical internal carotid arteries are patent. There is moderate plaque within the proxim al internal carotid arteries without stenosis. There is no aneurysm or dissection within the neck. Ce rvical portions of the bilateral vertebral arteries are patent. The left vertebral artery is dominant . Severe multifocal stenoses with extensive plaque within the intracranial portion of the left verteb ral artery is unchanged. Occlusion of the intracranial portion the right vertebral artery is also unc hanged. CTA of the head will be reported separately. IMPRESSION: 1. Moderate atherosclerotic plaque within the proximal bilateral internal carotid arteries without si gnificant stenosis. 2. No change in occlusion of the intracranial portion of the right vertebral artery and severe multif ocal stenoses within the intracranial portion of the left vertebral artery. ACT 112: Negative or not required by law. Electronically signed by: Italo Quarles M.D. 09/29/2024 9:19 AM
[2024-09-29] MEDS: SODIUM CHLORIDE 0.9% 1,000 ML IV SCH (09:47)
[2024-09-29 10:59] LABS: Chlamydia pneumoniae PCR Not Detected (NotDetected); Coronavirus 229E PCR Not Detected (NotDetected); Coronavirus CoV-2 (COVID19)PCR Not Detected (NotDetected); Coronavirus HKU1 PCR Not Detected (NotDetected); Coronavirus NL63 PCR Not Detected (NotDetected); Coronavirus OC43PCR Not Detected (NotDetected); Human Metapneumovirus PCR Not Detected (NotDetected); Parainfluenza Virus 1 PCR Not Detected (NotDetected); Parainfluenza Virus 2 PCR Not Detected (NotDetected); Parainfluenza Virus 3 PCR Not Detected (NotDetected); Parainfluenza Virus 4 PCR Not Detected (NotDetected); Respiratory Syncytial VirusPCR Not Detected (NotDetected); Rhinovirus/Enterovirus PCR Not Detected (NotDetected)
[2024-09-29 11:05] VITALS: PULSE 64; O2SAT 98
[2024-09-29] MEDS: ASPIRIN 81 MG ECTAB PO SCH (11:06)
[2024-09-29] MEDS: CYANOCOBALAMIN (B-12) 500 MCG TABLET PO SCH (11:07)
[2024-09-29] MEDS: CLOPIDOGREL BISULFATE 75 MG TAB PO SCH (11:07)
[2024-09-29] MEDS: levETIRAcetam 500 MG TAB PO SCH (11:07)
[2024-09-29] MEDS: ROSUVASTATIN CALCIUM 20 MG TAB PO SCH (11:08)
[2024-09-29] MEDS: METOPROLOL SUCC 25MG EXT REL TAB PO SCH (11:08)
[2024-09-29] MEDS: levETIRAcetam 500 MG/5 ML VIAL **500mg IV ONE (11:33)
[2024-09-29] MEDS ORDERED: STROKE PATIENT DISCHARGE STA (11:38)
[2024-09-29 11:59] VITALS: BP 175/82
--- NOTE | 2024-09-29 13:53 | Discharge Summary ---
Discharge Summary Date of Service September 29, 2024 Principal Dx & Hospital Course #1 = Principal Diagnosis (1) Stroke-like symptoms: Patient is a 69 year old M with a past medical history of partial complex seizure disorder, CVA, Paroxysmal atrial fibrillation, Ischemic cardiomyopathy, CAD s/p CABG x 3 on 10/15/21, Hypertension, dyslipidemia, DM Type II non-insulin dependent, PATRICIA, morbid obesity, Arthritis, Esophageal reflux presenting with stroke like symptoms. Symptoms began at 1300 today with diaphoresis and nausea then progressed to slurred speech, numbness to right side of body, and right eyelid dropping at 1615. Patient has a seizure disorder, managed on carbamazepine with therapeutic levels checked last week. Nausea and diaphoresis are typical symptoms with his seizure disorder and thought this was related, but then worsened with more focal changes. Stroke-like symptoms #Seizure disorder,simple partial * Admit to PCU Tele for further workup and management * MRI wo contrast for further stroke workup- ordered * Echo from last admit 09/16/2024 showing LVEF 55-60%, Grade I diastolic dysfunction, mildly dilated left atrium, PFO with mild loeyd-hp-fjvo shunting. * Tele Neuro consult in ED and formal consult to follow- EEG study ordered * Keppra 2gm loading dose given in ED--> will start Keppra 500 mg BID dosing tomorrow morning * Continue home carbamazepine- therapeutic level pending * Dysphagia screening needed- ordered; NPO for now * PT/OT consult when appropriate * code stroke in AM 09/29/2024, likely worsening or new infarcts, transfer to higher level of care recommended by neurology #Ischemic cardiomyopathy #CAD s/p CABG x 3 #Dyslipidemia * Continue home Aspirin and Plavix * Continue rosuvastatin 40 mg daily as per home regimen * Check lipids with AM labs * LDL above goal OP, 98 with last check #Parox A fib postoperative * Continue home metoprolol for rate control * NSR here * Tele monitoring * Ziopatch removed for MRI-->Possible Ziopatch monitoring for OP mgmt at d/c #DM Type II non-insulin dependent * Check A1C with Am labs * Accucheck ACHS * Consider SSI pending A1C--> patient uses diet-control with no oral meds at home (2) Seizure disorder, simple partial, without intractable epilepsy: (3) Ischemic cardiomyopathy: (4) CAD (coronary artery disease): (5) PAF (paroxysmal atrial fibrillation): (6) Dyslipidemia: (7) Type 2 diabetes mellitus: Notes For Next Care Provider Patient is a 69 year old M with a past medical history of partial complex seizure disorder, CVA, Paroxysmal atrial fibrillation, Ischemic cardiomyopathy, CAD s/p CABG x 3 on 10/15/21, Hypertension, dyslipidemia, DM Type II non-insulin dependent, PATRICIA, morbid obesity, Arthritis, Esophageal reflux presenting with stroke like symptoms. Admitted for stroke. On medicine, MR head revealed acute medullary infarct. Neurology consulted for seizure, recommended EEG and starting keppra. On 09/29/2024 code stroke called by this provider for worsening stroke symptoms, NIHSS of 6 for disconjugate gaze, worsening facial paralaysis, right leg sensation deficits, dysphagia, blurry vision, NIHSS delta of 2. Discussed with teleneurology, recommended transfer to [facility] for neuro stroke unit and closer monitoring. To do: [ ] PT/OT/speech [ ] will need tele monitoring for 30 days at discharge Medication Changes From Visit -see below Admission HPI Per Admitting Provider Patient is a 69 year old M with a past medical history of partial complex seizure disorder, CVA, Paroxysmal atrial fibrillation, Ischemic cardiomyopathy, CAD s/p CABG x 3 on 10/15/21, Hypertension, dyslipidemia, DM Type II non-insulin dependent, PATRICIA, morbid obesity, Arthritis, Esophageal reflux presenting with stroke like symptoms. Symptoms began at 1300 today with diaphoresis and nausea then progressed to slurred speech, numbness to right side of body, and right eyelid dropping at 1615. Patient has a seizure disorder, managed on carbamazepine with therapeutic levels checked last week. Nausea and diaphoresis are typical symptoms with his seizure disorder and thought this was related, but then worsened with more focal changes. Denies fever, chills, weight loss, headache, vision/hearing changes, chest pain, SOB, swelling, difficulty breathing, urinary concerns, vomiting, diarrhea, joint swelling/pain, ambulation difficulty, skin rashes, lesions, bleeding, bruising. In the emergency department, patient was hemodynamically stable with no signs of infection or hypoxia. EKG showed Sinus rhythm with 1st degree A-V block, vent rate 73 bpm, QTc 478. Chest Xray showed patchy alveolar opacities in the left lower zone may signify some inflammatory infiltrates; No acute collapse or consolidation is seen on either side. Head CT revealed no evidence of an acute intracranial abnormality. Head and Neck CTA showing high-grade atherosclerotic disease of the bilateral distal vertebral arteries with high-grade stenosis without an acute thrombus identified; Moderate calcified atherosclerotic disease of the bilateral internal carotid arteries in the cavernous sinuses with no thrombus or high- grade occlusion. No TNK given. Tele Neurology consult with recommendation to give Keppra loading dose, check Carbamazepine level and will see patient tomorrow. Patient was admitted on 09/16 with stroke like symptoms and was given TNK with relief of symptoms. Echo from admission showing LVEF 55-60%, Grade I diastolic dysfunction, mildly dilated left atrium,PFO with mild uzbfo-[id number]-oyet shunting. Had Zio patch initiated at time of discharge with rec to follow up with Neurology and Cardiology. As per external chart review, patient was seen by PCP on 09/23/2024 for hosp follow up. Has not seen Cardiology or Neurology for hosp followup yet. History obtained primarily from the patient and via hospitalization record. The patient's family was at the bedside and assisted with past medical history, current illness, and medications. External chart review obtained from [facility]. Discharge Exam Gen: A&O 3 NAD HEENT: NCAT, EOMI, not icteric. External ears normal. No rhinorrhea. Moist mucous membranes. Neck: Supple, full range of motion, no observable masses, No meningeal sign. Lungs: No Respiratory distress. CV: RRR, no edema. Abdomen: Soft, nondistended, No rebound tenderness. MSK: No joint swelling, no redness. Skin: No rashes, petechiae, lesions. Normal color per patient. Neuro: NIHSS of 6 for gaze palsy, unilateral paralysis (upper and lower right face), right leg sensation change, dysarthria Psych: Appropriate for situation. Updated Medication List Medication Instructions Recorded Confirmed Type aspirin 81 mg tablet,delayed 81 mg PO DAILY 09/16/24 09/28/24 History release carbamazepine 200 mg tablet 400 mg PO BID 09/16/24 09/28/24 History cyanocobalamin (vitamin B-12) 1,000 mcg PO DAILY 09/16/24 09/28/24 History 1,000 mcg tablet (Vitamin B-12) metoprolol succinate 25 mg 25 mg PO DAILY 09/16/24 09/28/24 History tablet,extended release 24 hr rosuvastatin 40 mg tablet 40 mg PO DAILY 09/16/24 09/28/24 History vitamin B complex 1 tab PO DAILY 09/16/24 09/28/24 History clopidogrel 75 mg tablet (Plavix) 75 mg PO DAILY 21 days #21 tabs 09/17/24 09/28/24 Rx Reservatol Tablet 420 mg PO DAILY 09/28/24 09/28/24 History cholecalciferol (vitamin D3) 25 25 mcg PO DAILY 09/28/24 09/28/24 History mcg (1,000 unit) capsule (Vitamin D3) multivitamin 1 tab PO DAILY 09/28/24 09/28/24 History levetiracetam 500 mg tablet 500 mg PO BID #60 tabs 09/29/24 Rx (Keppra) ondansetron 4 mg disintegrating 4 mg PO Q8H PRN nausea and 09/29/24 Rx tablet vomiting 4 days #14 tabs Hospital Stay Data Consultations 09/28/24 18:32 ED Decision to Admit Stat 09/28/24 22:22 Consult Neurology Routine 09/29/24 11:14 Burn CD for patient Stat Diagnostic Imagining Performed 09/28/24 17:42 CT angio head w con Stat CT angio neck with con Stat CT head/brain wo con Stat 09/28/24 20:10 MR brain wo con Routine 09/29/24 07:25 CT head/brain wo con Stat 09/29/24 08:19 CT angio head w con Stat CT angio neck with con Stat Pending Results Patient Have Any Pending Studies at Discharge: No Discharge Instructions Given to Patient (Per Discharging Provider) 1. Transfer to [facility] for higher level of care. Total Time Total Time Spent Total Time Spent (In Minutes): I spent a total of 35 minutes in direct patient care, including [id number] time with the patient and/or family, reviewing medical records, ordering and reviewing diagnostic tests, and coordinating care with other healthcare providers. This time includes: history taking, physical examination, medical decision making, counseling, ECG interpretation, imaging interpretation, lab interpretation, orders, and education, excluding time spent in the performance of separately billed services.
--- NOTE | 2024-09-29 14:28 | Electrocardiogram Report ---
Test Reason : Blood Pressure : */* mmHG Vent. Rate : 73 BPM Atrial Rate : 73 BPM P-R Int : 218 ms QRS Dur : 114 ms QT Int : 434 ms P-R-T Axes : -14 0 -12 degrees QTcB Int : 478 ms Sinus rhythm with 1st degree A-V block Inferior infarct , age undetermined Abnormal ECG When compared with ECG of 16-Sep-2024 11:20, Nonspecific T wave abnormality now evident in Inferior leads Confirmed by Rubio Casas ([id number]) on 09/29/2024 2:28:10 PM Referred By: REFERRED SELF Confirmed By: Rubio Casas
== END 2024-09-29 11:59 | disposition short-term general hospital (02) | DRG 65 ==
LOC: ED 17:39 → 2E 19:46 → SUATTDRO 19:46 → 2E 21:31